=== PATIENT | female | born 1985 | race African-American/Black ===

== ENCOUNTER 2016-09-19 09:03 | Emergency (ER) | payer OTHER ==
[~2016-09-19 09:03] MED LIST: AZIT250T PO; BENZ200C39 PO; CIPR500T PO; HYDR115S2 PO; KETO10TA PO; PAIN; PHEN-318 PO; PRED20TA PO; PROAIR HFA8.5 GM INH
[2016-09-19 10:02] VITALS: BP 118/82
--- NOTE | 2016-09-19 10:24 | PHYS DOC ---
Past Medical History Past Medical History: Other Additional Past Medical Histor: Ovarian CA, Scoliosis Past Surgical History: , Oophorectomy, Other Additional Past Surgical Histo: Hernia repair Alcohol Use: None Drug Use: None Adult General Chief Complaint Chief Complaint: FOREIGN BODY VAGINA HPI HPI Patient is a 30 year old female presents to the emergency department with a history of placed a cervical cap for her menstrual cycle. Patient states she has not been able to get the cap removed. She states she placed the yesterday. C /o right lower abdominal pain. Denies vaginal discharge. Review of Systems Review of Systems Constitutional: Denies fever or chills [] Eyes: Denies change in visual acuity, redness, or eye pain [] HENT: Denies nasal congestion or sore throat [] Respiratory: Denies cough or shortness of breath [] Cardiovascular: No additional information not addressed in HPI [] GI: Denies abdominal pain, nausea, vomiting, bloody stools or diarrhea [] : Denies dysuria or hematuria. Patient c/o unable to remove cervical cap [] Musculoskeletal: Denies back pain or joint pain [] Integument: Denies rash or skin lesions [] Neurologic: Denies headache, focal weakness or sensory changes [] Allergies Allergies Allergies Coded Allergies Type Severity Reaction Last Updated Verified No Known Drug Allergies 10/24/13 No Physical Exam Physical Exam Constitutional: Well developed, well nourished, no acute distress, non-toxic appearance. [] HENT: Normocephalic, atraumatic, bilateral external ears normal, oropharynx moist, no oral exudates, nose normal. [] Eyes: PERRLA, EOMI, conjunctiva normal, no discharge. [] Neck: Normal range of motion, no tenderness, supple, no stridor. [] Cardiovascular:Heart rate regular rhythm, no murmur [] Lungs & Thorax: Bilateral breath sounds clear to auscultation [] Abdomen: Bowel sounds hypoactive, soft, no tenderness, no masses, no pulsatile masses. [] Skin: Warm, dry, no erythema, no rash. [] Back: No tenderness, Extremities: No tenderness, no cyanosis, no clubbing, ROM intact, no edema. [] Neurologic: Alert and oriented X 3, normal motor function, normal sensory function, no focal deficits noted. [] Psychologic: Affect normal, judgement normal, mood normal. [] Pelvic exam completed with cervical Noted. Cervical cap Was removed with slight difficulty. Cervical cap was completely intact. Foul odor was noted. Manaul exam with tenderness noted right adnexal and CMT no left adnexal tenderness noted. Current Patient Data Vital Signs Vital Signs Date Time Temp Pulse Resp B/P Pulse Ox O2 Delivery O2 Flow Rate FiO2 09/19/16 10:02 98.5 106 16 118/82 100 Room Air 98.5 Lab Values Microbiology 09/19/16 Wet Prep - Final, Complete EKG EKG [] Radiology/Procedures Radiology/Procedures [] Course & Med Decision Making Course & Med Decision Making Pertinent Labs and Imaging studies reviewed. (See chart for details) Wet prep was negative. Patient will be placed on doxycycline 1 tablet twice a day for the next 7 days. Recommended following up with [facility]. Patient was provided with signs and symptoms to return back to emergency department. Recommended patient to avoid sexual intercourse until she is off the doxycycline for at least a week. A shunt agrees with discharge instructions treatment regimens and follow-up recommendations. [] Dragon Disclaimer Dragon Disclaimer This electronic medical record was generated, in whole or in part, using a voice recognition dictation system. Departure Departure Impression: Primary Impression: Vaginal foreign body Disposition: HOME, SELF-CARE Condition: STABLE Referrals: YARIEL CLIFFORD MD (PCP) RORY CARLSON MD Patient Instructions: Vaginal Foreign Body, [id number] Additional Instructions: Activity as tolerated. Medications as prescribed. Tylenol or ibuprofen for pain and discomfort. Avoid sexual intercourse for 2 weeks. Follow-up with [facility] within the next week. Return back to emergency percent symptoms of become worse. Scripts Doxycycline Hyclate 100 Mg Capsule1 Cap PO BID #14 CAP Prov:LUCY HOWELL NP 09/19/16 LUCY HOWELL NP Sep 19, 2016 10:24
[2016-09-19] MEDS ORDERED: DOXY100C2 PO (11:25)
== END 2016-09-19 11:40 | disposition home or self-care (01) ==
LOC: ER 09:03
DX: T19.2XXA Foreign body in vulva and vagina, initial encounter (principal); Z98.890 Other specified postprocedural states; Z90.721 Acquired absence of ovaries, unilateral; X58.XXXA Exposure to other specified factors, initial encounter; Y93.89 Activity, other specified; Y92.89 Other specified places as the place of occurrence of the external cause; Y99.8 Other external cause status
CPT/HCPCS: 87491; 87591; 99284; Q0111

== ENCOUNTER → 2016-10-23 | Outpatient (CLI) | payer OTHER ==
[~2016-10-23] MED LIST changes: +DOXY100C2 PO
--- NOTE | 2016-10-23 15:37 | RAD ---
Examination: Transabdominal Ultrasound pelvis History: History of abnormal menses Comparison: None available Findings: The uterus measures 8.8 x 4.7 x 2.6 cm. The endometrium measures 1 cm in thickness. There is some echogenicity identified within the endometrium with fluid within probably blood however in the lower portion of the endometrium , there is a 4 mm echogenicity, nonspecific could be of blood or blood products or a small polyp. The right ovary measures 2.7 x 1.8 x 2.0 cm. The left ovary measures 2.2 x 1.6 x 1.4 cm. Blood flow identified in the right and left ovaries. There is a small cystic structure measuring 1 cm identified in the right ovary probably a follicle. Impression: 1. Fluid identified within the endometrium with some echogenicity within probably blood within the endometrium. There is a 4 mm echogenicity identified in the lower portion of the endometrium could be a blood or blood product or a tiny polyp. Differentiation is difficult. Transvaginal ultrasound examination can be useful better evaluation. 2. 1 cm cystic structure identified in the right ovary likely a follicle.
== END | disposition home or self-care (01) ==
LOC: US 14:44
PROVIDERS: ATTEND Nurse Practitioner Family
DX: N83.201 Unspecified ovarian cyst, right side (principal)
CPT/HCPCS: 76856

== ENCOUNTER 2016-11-26 17:29 | Emergency (ER) | payer OTHER ==
[2016-11-26 17:32] VITALS: BP 110/78
[2016-11-26] MEDS ORDERED: DIPHENHYDRAMINE HCL 25 MG CAPSULE PO ONE (17:45)
[2016-11-26] MEDS ORDERED: KETOROLAC TROMETHAMINE 60 MG/2 ML INJ. IM ONE (17:45)
[2016-11-26] MEDS ORDERED: PREDNISONE 20 MG TABLET PO ONE (17:45)
[2016-11-26] MEDS ORDERED: PROCHLORPERAZINE 10 MG/2 ML VIAL. IM ONE (17:45)
--- NOTE | 2016-11-26 17:47 | PHYS DOC ---
Past Medical History Past Medical History: Other Additional Past Medical Histor: Ovarian CA, Scoliosis Past Surgical History: , Oophorectomy, Other Additional Past Surgical Histo: Hernia repair Alcohol Use: None Drug Use: None Adult General Chief Complaint Chief Complaint: Congestion HPI HPI Patient is a 31 year old female with history of migraine headaches who presents today with 8 out of 10 frontal headache, nasal congestion, and coughing that began yesterday. Patient denies any fever. Patient states her headache is consistent with her normal migraines. She states she has tried Imitrex and promethazine with no relief. Denies this being the worst headache in her life. Denies any fever. Denies any nausea vomiting and right now. She is complaining of photophobia as well. Review of Systems Review of Systems Constitutional: Denies fever or chills [] Eyes: Denies change in visual acuity, redness, or eye pain [] HENT: nasal congestion Respiratory: Denies cough or shortness of breath [] Cardiovascular: No additional information not addressed in HPI [] GI: See history of present illness : Denies dysuria or hematuria [] Musculoskeletal: Denies back pain or joint pain [] Integument: Denies rash or skin lesions [] Neurologic: headache Endocrine: Denies polyuria or polydipsia [] Current Medications Current Medications Current Medications Medications (Trade) Dose Ordered Sig/Duy Start Time Stop Time Status Last Admin Dose Admin Diphenhydramine HCl (Benadryl) 25 mg 1X ONCE 11/26/16 17:45 11/26/16 17:46 DC Ketorolac Tromethamine (Toradol Im) 60 mg 1X ONCE 11/26/16 17:45 11/26/16 17:46 DC Prednisone (Prednisone) 60 mg 1X ONCE 11/26/16 17:45 11/26/16 17:46 DC Prochlorperazine Edisylate (Compazine) 10 mg 1X ONCE 11/26/16 17:45 11/26/16 17:46 DC Allergies Allergies Allergies Coded Allergies Type Severity Reaction Last Updated Verified No Known Drug Allergies 10/24/13 No Physical Exam Physical Exam Constitutional: Well developed, well nourished, no acute distress, non-toxic appearance. [] HENT: Normocephalic, atraumatic, bilateral external ears normal, oropharynx moist, no oral exudates, nose normal. [] Eyes: PERRLA, EOMI, conjunctiva normal, no discharge. [] Neck: Normal range of motion, no tenderness, supple, no stridor. [] Cardiovascular:Heart rate regular rhythm, no murmur [] Lungs & Thorax: Bilateral breath sounds clear to auscultation [] Abdomen: Bowel sounds normal, soft, no tenderness, no masses, no pulsatile masses. [] Skin: Warm, dry, no erythema, no rash. [] Back: No tenderness, no CVA tenderness. [] Extremities: No tenderness, no cyanosis, no clubbing, ROM intact, no edema. [] Neurologic: Alert and oriented X 3, normal motor function, normal sensory function, no focal deficits noted. Cranial nerves II through XII intact Psychologic: Affect normal, judgement normal, mood normal. [] Current Patient Data Vital Signs Vital Signs Date Time Temp Pulse Resp B/P Pulse Ox O2 Delivery O2 Flow Rate FiO2 11/26/16 17:32 98.1 98 20 98 Room Air 98.1 EKG EKG [] Radiology/Procedures Radiology/Procedures [] Course & Med Decision Making Course & Med Decision Making Pertinent Labs and Imaging studies reviewed. (See chart for details) Patient is in the ED with symptoms of an upper respiratory infection as well as a migraine headache. She has history of migraine headaches. She was discharged with Flonase, Tessalon Perles, and Claritin-D. Follow-up with her PCP in 1-2 weeks. Dragon Disclaimer Dragon Disclaimer This electronic medical record was generated, in whole or in part, using a voice recognition dictation system. Departure Departure Impression: Primary Impression: Upper respiratory infection Additional Impressions: Migraine headache Cough Disposition: 01 HOME, SELF-CARE Condition: STABLE Referrals: YARIEL CLIFFORD MD (PCP) Follow-up with your doctor in 1-2 weeks Patient Instructions: Cough, Adult, [id number], Migraine Headache, Upper Respiratory Infection, Adult Additional Instructions: You were seen with symptoms consistent of an upper respiratory infection as well as a migraine headache. Take the prescribed medicines as ordered. Follow- up with your doctor in the next 7 days, come back to the ED symptoms worsen. Scripts Cetirizine Hcl/Pseudoephedrine (Zyrtec-D Tablet)1 Each Tab.er.12h1 Tab PO BID # 30 TAB Prov:MUTUNGA,VIOLETTA LUCIA 11/26/16 Cyclobenzaprine Hcl 10 Mg Tablet1 Tab PO TID #30 TAB Prov:JINVIOLETTA LUCIA 11/26/16 Fluticasone Propionate (Flonase Allergy Relief)9.9 Ml [place].susp2 Sprays NS DAILY #1 BOTTLE Prov:VIOLETTA ABDI APRN 11/26/16 Benzonatate (Tessalon Perle)100 Mg Capsule1 Cap PO TID #30 CAP Prov:VIOLETTA ABDI APRN 11/26/16 Prednisone 50 Mg Tablet1 Tab PO DAILY #4 TAB Prov:IJNVIOLETTA LUCIA 11/26/16 Problem Qualifiers Primary Impression: Upper respiratory infection URI type: unspecified URI Qualified Code: J06.9 - Acute upper respiratory infection, unspecified Additional Impressions: Migraine headache Migraine type: unspecified Status migrainosus presence: without status migrainosus Intractability: not intractable Qualified Code: G43.909 - Migraine, unspecified, not intractable, without status migrainosus VIOLETTA ABDI APRN Nov 26, 2016 17:47
[2016-11-26] MEDS ORDERED: PROCHLORPERAZINE 5 MG TABLET. PO STA (17:50)
[2016-11-26] MEDS ORDERED: CETI1TAB7 PO (17:54)
[2016-11-26] MEDS ORDERED: CYCL10TA2 PO (17:54)
[2016-11-26] MEDS ORDERED: FLUT9.9S NS (17:54)
[2016-11-26] MEDS ORDERED: BENZ100C PO (17:54)
[2016-11-26] MEDS ORDERED: PRED50TA PO (17:54)
[2016-11-26] MEDS ORDERED: PROMETHAZINE 12.5 MG TABLET. PO ONE (18:15)
== END 2016-11-26 18:29 | disposition home or self-care (01) ==
LOC: ER 17:29
DX: J06.9 Acute upper respiratory infection, unspecified (principal); G43.909 Migraine, unspecified, not intractable, without status migrainosus
CPT/HCPCS: 96372; 99284; J1885; J7512; Q0163; Q0169

== ENCOUNTER → 2017-02-03 | Outpatient (CLI) | payer OTHER ==
[~2017-02-03] MED LIST changes: +BENZ100C PO; -BENZ200C39 PO; +BENZ200C47 PO; +CETI1TAB7 PO; +CYCL10TA2 PO; +FLUT9.9S NS; +PRED50TA PO
--- NOTE | 2017-02-03 13:01 | RAD ---
Indication: Asthma attack. Time of exam 12:35 PM Correlation is made with prior study from 09/01/2016. Right convexity thoracic scoliotic curvature is noted. The heart size is stable. The lungs are clear. No infiltrate is detected. No effusion or pneumothorax is identified. Impression: No acute cardiopulmonary process is detected.
== END | disposition home or self-care (01) ==
LOC: RAD 12:04
PROVIDERS: ATTEND Family Medicine
DX: J45.901 Unspecified asthma with (acute) exacerbation (principal); M41.84 Other forms of scoliosis, thoracic region
CPT/HCPCS: 71020

== ENCOUNTER 2017-06-03 11:56 | Emergency (ER) | payer OTHER ==
[~2017-06-03] VITALS: Ht 152.4 cm; Wt 45.8 kg
[2017-06-03 12:02] VITALS: BP 97/56
[2017-06-03] MEDS ORDERED: CYCLOBENZAPRINE 10 MG TABLET. PO ONE (12:30)
[2017-06-03] MEDS ORDERED: SUMAtriptan SUCCINATE 25 MG TABLET PO ONE (12:30)
[2017-06-03] MEDS ORDERED: ONDANSETRON ODT 4 MG TAB.RAPDIS. PO ONE (12:30)
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
--- NOTE | 2017-06-03 13:14 | RAD ---
Examination: CT head and cervical spine without contrast History: History of neck pain, injury, dizziness. Comparison: CT head from 09/14/2014 Technique: Axial CT images of the head and cervical spine was performed with the contrast. Coronal and sagittal reformats of the cervical spine were performed RS Compliance Statement: One or more of the following individualized dose reduction techniques were utilized for this examination: 1. Automated exposure control 2. Adjustment of the mA and/or kV according to patient size 3. Use of iterative reconstruction technique . Findings There is no evidence of midline shift. There is no acute intracranial bleed or extra axial fluid collection identified. The amezquita-white matter different sensation is maintained. Cavum septum pellucidum identified. The visualized lateral ventricles, third ventricle, fourth ventricle are proper for age. The basal cisterns are uneffaced. Probable Chiari1 formation similar to prior exam. The vertebral body heights are maintained. There is no obvious acute fracture identified. The lateral masses of C1 are aligned with C2 vertebra. The C2 dens appears intact. No evidence of prevertebral soft tissue swelling identified. No evidence of listhesis. The apical lungs are clear. No evidence of prevertebral soft tissue swelling. Examination cervical spine somewhat limited due to positioning within the CT gantry. Impression: 1. No evidence of intracranial findings. 2. 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 2. No acute fracture of the cervical spine. Correlate clinically.
[2017-06-03] MEDS ORDERED: TRAM-48 PO (13:57)
== END 2017-06-03 13:58 | disposition home or self-care (01) ==
LOC: ER 11:56
DX: S16.1XXA Strain of muscle, fascia and tendon at neck level, initial encounter (principal); R51 Headache; W08.XXXA Fall from other furniture, initial encounter; Y93.84 Activity, sleeping; Y99.8 Other external cause status; Y92.009 Unspecified place in unspecified non-institutional (private) residence as the place of occurrence of the external cause
CPT/HCPCS: 70450; 72125; 99284-25

== ENCOUNTER 2017-11-13 18:15 | Emergency (ER) | payer OTHER ==
[2017-11-13 18:50] LABS: INFLUENZA A PATIENT NEGATIVE (NEGATIVE); INFLUENZA B PATIENT NEGATIVE (NEGATIVE); OBC FLU VALID
[2017-11-13] MEDS: DEXAMETHASONE SOD PHOS 20 MG/5 ML VIAL. IM (19:10)
[2017-11-13] MEDS: KETOROLAC 60 MG/2 ML INJ. IM (19:10)
[2017-11-14 10:25] LABS: NEGATIVE OBC STREP NEG; POSITIVE OBC STREP POS
== END 2017-11-13 19:58 | disposition home or self-care (01) ==
LOC: ER 19:58
DX: G43.909 Migraine, unspecified, not intractable, without status migrainosus (principal); J06.9 Acute upper respiratory infection, unspecified
CPT/HCPCS: 71046; 87070; 87804; 87804-59; 87880; 96372; 99285-25; J1100; J1885

== ENCOUNTER → 2018-02-25 | Outpatient (CLI) | payer OTHER | END | disposition home or self-care (01) | LOC: RAD 12:33 | DX: R06.02 Shortness of breath (principal); J32.9 Chronic sinusitis, unspecified; G43.909 Migraine, unspecified, not intractable, without status migrainosus | CPT/HCPCS: 71046 ==

== ENCOUNTER 2018-05-09 11:45 | Emergency (ER) | payer OTHER ==
[~2018-05-09] VITALS: Ht 152.4 cm; Wt 37.6 kg
[~2018-05-09 11:45] MED LIST changes: +TRAM-48 PO; +TRAM50TA PO; +VENTOLIN HFA18 GM INH
--- NOTE | 2018-05-09 12:24 | PHYS DOC ---
Past Medical History Past Medical History: Cancer, Other Additional Past Medical Histor: Ovarian CA, Scoliosis Past Surgical History: , Oophorectomy, Other Additional Past Surgical Histo: Hernia repair,R OVARY Alcohol Use: None Drug Use: None Adult General Chief Complaint Chief Complaint: HEADACHE HPI HPI Patient is a 32 year old female who presents with 8/10 throbbing frontal headache that began on Thursday which is 3 days ago. Patient states the headache began gradually. Patient states she's also had nausea and vomiting since the headache began. Patient denies any fever. She states she has history of migraine headaches and this is similar to her previous migraines. Review of Systems Review of Systems Constitutional: Denies fever or chills [] Eyes: Denies change in visual acuity, redness, or eye pain [] HENT: Denies nasal congestion or sore throat [] Respiratory: Denies cough or shortness of breath [] Cardiovascular: No additional information not addressed in HPI [] GI: Reports nausea and vomiting. Denies abdominal pain, bloody stools or diarrhea [] : Denies dysuria or hematuria [] Musculoskeletal: Denies back pain or joint pain [] Integument: Denies rash or skin lesions [] Neurologic: Reports migraine headache, denies focal weakness or sensory changes [] All other systems were reviewed and found to be within normal limits, except as documented in this note. Current Medications Current Medications Current Medications Medications (Trade) Dose Ordered Sig/Duy Start Time Stop Time Status Last Admin Dose Admin Dexamethasone Sodium Phosphate (Decadron) 10 mg 1X ONCE 05/09/18 12:30 05/09/18 12:31 DC 05/09/18 12:49 10 MG Diphenhydramine HCl (Benadryl) 25 mg 1X ONCE 05/09/18 12:30 05/09/18 12:31 DC 05/09/18 12:48 25 MG Ketorolac Tromethamine (Toradol 30mg Vial) 30 mg 1X ONCE 05/09/18 12:30 05/09/18 12:31 DC 05/09/18 12:49 30 MG Prochlorperazine Edisylate (Compazine) 10 mg 1X ONCE 05/09/18 12:30 05/09/18 12:31 DC 05/09/18 12:49 10 MG Sodium Chloride 1,000 ml @ 1,000 mls/hr 1X ONCE 05/09/18 12:30 05/09/18 13:29 DC 05/09/18 12:47 1,000 MLS/HR Allergies Allergies Allergies Coded Allergies Type Severity Reaction Last Updated Verified No Known Drug Allergies 10/24/13 No Physical Exam Physical Exam Constitutional: Well developed, well nourished, no acute distress, non-toxic appearance. [] HENT: Normocephalic, atraumatic, bilateral external ears normal, oropharynx moist, no oral exudates, nose normal. [] Eyes: PERRLA, EOMI, conjunctiva normal, no discharge. [] Neck: Normal range of motion, no tenderness, supple, no stridor. [] Cardiovascular:Heart rate regular rhythm, no murmur [] Lungs & Thorax: Bilateral breath sounds clear to auscultation [] Abdomen: Bowel sounds normal, soft, no tenderness, no masses, no pulsatile masses. [] Skin: Warm, dry, no erythema, no rash. [] Back: No tenderness, no CVA tenderness. [] Extremities: No tenderness, no cyanosis, no clubbing, ROM intact, no edema. [] Neurologic: Alert and oriented X 3, normal motor function, normal sensory function, no focal deficits noted. Cranial nerves II through XII intact Psychologic: Affect normal, judgement normal, mood normal. [] Current Patient Data Vital Signs Vital Signs Date Time Temp Pulse Resp B/P (MAP) Pulse Ox O2 Delivery O2 Flow Rate FiO2 05/09/18 12:04 98.2 123 16 113/78 (90) 98 Room Air 98.2 Lab Values Laboratory Tests Test 05/09/18 12:13 05/09/18 12:20 POC Urine HCG, Qualitative Hcg negative (Negative) White Blood Count 6.2 x10^3/uL (4.0-11.0) Red Blood Count 3.94 x10^6/uL (3.50-5.40) Hemoglobin 11.9 g/dL (12.0-15.5) L Hematocrit 35.3 % (36.0-47.0) L Mean Corpuscular Volume 90 fL (79-100) Mean Corpuscular Hemoglobin 30 pg (25-35) Mean Corpuscular Hemoglobin Concent 34 g/dL (31-37) Red Cell Distribution Width 13.1 % (11.5-14.5) Platelet Count 347 x10^3/uL (140-400) Neutrophils (%) (Auto) 48 % (31-73) Lymphocytes (%) (Auto) 43 % (24-48) Monocytes (%) (Auto) 6 % (0-9) Eosinophils (%) (Auto) 1 % (0-3) Basophils (%) (Auto) 1 % (0-3) Neutrophils # (Auto) 3.0 x10^3uL (1.8-7.7) Lymphocytes # (Auto) 2.7 x10^3/uL (1.0-4.8) Monocytes # (Auto) 0.4 x10^3/uL (0.0-1.1) Eosinophils # (Auto) 0.1 x10^3/uL (0.0-0.7) Basophils # (Auto) 0.1 x10^3/uL (0.0-0.2) Sodium Level 139 mmol/L (136-145) Potassium Level 3.8 mmol/L (3.5-5.1) Chloride Level 104 mmol/L (98-107) Carbon Dioxide Level 24 mmol/L (21-32) Anion Gap 11 (6-14) Blood Urea Nitrogen 19 mg/dL (7-20) Creatinine 0.8 mg/dL (0.6-1.0) Estimated GFR (Cockcroft-Gault) 100.0 Glucose Level 91 mg/dL (70-99) Calcium Level 9.3 mg/dL (8.5-10.1) Laboratory Tests 05/09/18 12:20 Laboratory Tests 05/09/18 12:20 EKG EKG [] Radiology/Procedures Radiology/Procedures [] Course & Med Decision Making Course & Med Decision Making Pertinent Labs and Imaging studies reviewed. (See chart for details) This is a 32-year-old female patient presented to the ED today with exacerbation of chronic migraine headache, hx of similar migraine headaches. She does not have neurological deficits. She was given Toradol, IV fluids, Decadron, Compazine, Benadryl, without relief. She has been tachycardic since arrival to the ED. Patient tends to be tachycardic whenever he comes to the ED. There is nothing unusual about her headache today. She was discharged with Imitrex and promethazine and instructed to follow-up with her on PCP in 1-2 weeks. Also provided neurologist for frequent migraines. Dragon Disclaimer Dragon Disclaimer This electronic medical record was generated, in whole or in part, using a voice recognition dictation system. Departure Departure Impression: Primary Impression: Migraine headache Disposition: HOME, SELF-CARE Condition: STABLE (alcohol) Referrals: YARIEL CLIFFORD MD (PCP) follow up in 2 weeks WILIAN JEFF MD Patient Instructions: Migraine Headache Additional Instructions: You have a migraine headache. Complete your medications, take them as prescribed. Follow-up with your own doctor as well as the neurologist as soon as possible. Scripts Promethazine Hcl (PROMETHAZINE HCL) 25 Mg Tablet 1 TAB PO PRN Q6HRS, #30 TAB Prov: VIOLETTA ABDI APRN 05/09/18 Sumatriptan Succinate (IMITREX) 50 Mg Tablet 1 TAB PO UD, #9 TAB 1 Refill Prov: VIOLETTA ABDI APRN 05/09/18 Problem Qualifiers Primary Impression: Migraine headache Migraine type: without aura Status migrainosus presence: without status migrainosus Intractability: not intractable Qualified Codes: G43.009 - Migraine without aura, not intractable, without status migrainosus VIOLETTA ABDI APRN May 09, 2018 12:24
[2018-05-09] MEDS ORDERED: diphenhydrAMINE HCL 25 MG CAPSULE PO ONE (12:30)
[2018-05-09] MEDS ORDERED: KETOROLAC 30 MG/ML VIAL. IV ONE (12:30)
[2018-05-09] MEDS ORDERED: IV NORMAL SALINE 1000ML BAG 1,000 ML IV ONE (12:30)
[2018-05-09] MEDS ORDERED: DEXAMETHASONE SOD PHOS 20 MG/5 ML VIAL. IV ONE (12:30)
[2018-05-09] MEDS ORDERED: PROCHLORPERAZINE 10 MG/2 ML VIAL. IV ONE (12:30)
[2018-05-09 12:32] LABS: BASO # 0.1 x10^3/uL (0.0-0.2); BASO % 1 % (0-3); EOS # 0.1 x10^3/uL (0.0-0.7); EOS % 1 % (0-3); HEMATOCRIT 35.3 % (36.0-47.0); HEMOGLOBIN 11.9 g/dL (12.0-15.5); LYMPH # 2.7 x10^3/uL (1.0-4.8); LYMPH % 43 % (24-48); MEAN CORPUSCULAR HEMOGLOBIN 30 pg (25-35); MEAN CORPUSCULAR HGB CONC 34 g/dL (31-37); MEAN CORPUSCULAR VOLUME 90 fL (79-100); MONO # 0.4 x10^3/uL (0.0-1.1); MONO % 6 % (0-9); NEUT % 48 % (31-73); PLATELET COUNT 347 x10^3/uL (140-400); RED BLOOD COUNT 3.94 x10^6/uL (3.50-5.40); RED CELL DISTRIBUTION WIDTH 13.1 % (11.5-14.5); WHITE BLOOD COUNT 6.2 x10^3/uL (4.0-11.0)
[2018-05-09 12:38] LABS: CALCIUM 9.3 mg/dL (8.5-10.1); CREATININE 0.8 mg/dL (0.6-1.0); POTASSIUM 3.8 mmol/L (3.5-5.1)
[2018-05-09] MEDS ORDERED: PROM25TA10 PO (13:48)
[2018-05-09] MEDS ORDERED: SUMA50TA3 PO (13:48)
[2018-05-09 14:06] VITALS: BP 110/73
== END 2018-05-09 14:08 | disposition home or self-care (01) ==
LOC: ER 11:45
DX: G43.009 Migraine without aura, not intractable, without status migrainosus (principal); R11.2 Nausea with vomiting, unspecified; Z98.890 Other specified postprocedural states
CPT/HCPCS: 36415; 80048; 81025; 85025; 96361; 96374; 96375; 99284; J0780; J1100; J1885; J7030; Q0163

== ENCOUNTER 2018-05-13 18:13 | Emergency (ER) | payer OTHER ==
[~2018-05-13] VITALS: Ht 157.5 cm; Wt 37.6 kg
[~2018-05-13 18:13] MED LIST changes: +PROM25TA10 PO; +SUMA50TA3 PO
[2018-05-13 18:35] VITALS: BP 115/82
[2018-05-13] MEDS ORDERED: LIDO30CR TP (18:54)
[2018-05-13] MEDS ORDERED: HYDR25SU18 RC (18:54)
[2018-05-13] MEDS ORDERED: POLY17PO29 PO (18:55)
--- NOTE | 2018-05-13 18:55 | PHYS DOC ---
Past Medical History Past Medical History: Cancer, Other Additional Past Medical Histor: Ovarian CA, Scoliosis Past Surgical History: , Oophorectomy, Other Additional Past Surgical Histo: Hernia repair,R OVARY Alcohol Use: None Drug Use: None Adult General Chief Complaint Chief Complaint: OTHER COMPLAINTS [facility] Patient is a 32 year old female who presents complaining of hemorrhoid to her rectum that she noted this morning. Patient denies any abdominal pain nausea vomiting. Review of Systems Review of Systems Constitutional: Denies fever or chills [] Eyes: Denies change in visual acuity, redness, or eye pain [] HENT: Denies nasal congestion or sore throat [] Respiratory: Denies cough or shortness of breath [] Cardiovascular: No additional information not addressed in HPI [] GI: Reports hemorrhoid. Denies abdominal pain, nausea, vomiting, bloody stools or diarrhea [] : Denies dysuria or hematuria [] Musculoskeletal: Denies back pain or joint pain [] Integument: Denies rash or skin lesions [] Neurologic: Denies headache, focal weakness or sensory changes [] All other systems were reviewed and found to be within normal limits, except as documented in this note. Allergies Allergies Allergies Coded Allergies Type Severity Reaction Last Updated Verified No Known Drug Allergies 10/24/13 No Physical Exam Physical Exam Constitutional: Well developed, well nourished, no acute distress, non-toxic appearance. [] HENT: Normocephalic, atraumatic, bilateral external ears normal, oropharynx moist, no oral exudates, nose normal. [] Eyes: PERRLA, EOMI, conjunctiva normal, no discharge. [] Neck: Normal range of motion, no tenderness, supple, no stridor. [] Cardiovascular:Heart rate regular rhythm, no murmur [] Lungs & Thorax: Bilateral breath sounds clear to auscultation [] Abdomen: Bowel sounds normal, soft, no tenderness, no masses, no pulsatile masses. [] Rectal exam Patient declined, she showed me a picture of her rectum that looks like she has 2 peanut size hemorrhoids. Skin: Warm, dry, no erythema, no rash. [] Back: No tenderness, no CVA tenderness. [] Extremities: No tenderness, no cyanosis, no clubbing, ROM intact, no edema. [] Neurologic: Alert and oriented X 3, normal motor function, normal sensory function, no focal deficits noted. [] Psychologic: Affect normal, judgement normal, mood normal. [] Current Patient Data Vital Signs Vital Signs Date Time Temp Pulse Resp B/P (MAP) Pulse Ox O2 Delivery O2 Flow Rate FiO2 05/13/18 18:35 98.2 110 16 115/82 (93) 100 Room Air 98.2 EKG EKG [] Radiology/Procedures Radiology/Procedures [] Course & Med Decision Making Course & Med Decision Making Pertinent Labs and Imaging studies reviewed. (See chart for details) This is a 32-year-old female patient presented to the ED today complaining of rectal pain due to hemorrhoids. Patient will not let me do a physical exam to evaluate the hemorrhoids. She only showed to me the picture on her cell phone that she took early this morning. Patient denies constipation. She was discharged with Anusol cream, lidocaine cream, MiraLAX, and encouraged to increase her dietary fiber intake. Encouraged her to avoid any narcotics pain medicines. She is well known to this ED for Migraine headaches. F/u with general surgery. Dragon Disclaimer Dragon Disclaimer This electronic medical record was generated, in whole or in part, using a voice recognition dictation system. Departure Departure Impression: Primary Impression: Hemorrhoids Disposition: 01 HOME, SELF-CARE Condition: STABLE Referrals: YARIEL CLIFFORD MD (PCP) TURNER LYNN MD Follow-up in one week Patient Instructions: Hemorrhoids, [id number] Additional Instructions: You were evaluated in the emergency room, from the pictures you showed us it look like you have hemorrhoids. Try and use MiraLAX every day, increase your dietary fiber intake as well as water intake, avoid any narcotic pain medicines including tramadol. Use the rest of the prescribed medications as ordered. Follow-up with the primary care doctor as well as general surgeon provided in one week. Scripts Polyethylene Glycol 3350 (MIRALAX) 17 Gm Powd.pack 1 PACKET PO DAILY, #30 PACKET 3 Refills Prov: MUTUNGA,VIOLETTA HELP DESK SUPERVISOR 05/13/18 Hydrocortisone Acetate (ANUSOL-HC) 25 Mg Supp.rect 1 SUPP RC BID, #14 SUPP Prov: MUTUNGA,VIOLETTA HELP DESK SUPERVISOR 05/13/18 Lidocaine/Prilocaine (LIDOCAINE-PRILOCAINE CREAM) 30 Gm Cream..g. 1 ADILSON TP Q4-6HRS PRN for PAIN, #30 GM 1 Refill Apply to exterior rectal area Prov: VIOLETTA ABDI APRN 05/13/18 Problem Qualifiers Primary Impression: Hemorrhoids Hemorrhoid type: unspecified Qualified Codes: K64.9 - Unspecified hemorrhoids VIOLETTA ABDI APRN May 13, 2018 18:55
== END 2018-05-13 19:00 | disposition home or self-care (01) ==
LOC: ER 18:13
DX: K64.9 Unspecified hemorrhoids (principal); Z98.890 Other specified postprocedural states; Z85.43 Personal history of malignant neoplasm of ovary; Z90.722 Acquired absence of ovaries, bilateral
CPT/HCPCS: 99283

== ENCOUNTER 2018-09-04 11:28 | Emergency (ER) | payer OTHER ==
[~2018-09-04] VITALS: Ht 152.4 cm; Wt 36.7 kg
[~2018-09-04 11:28] MED LIST changes: +ALBU2.5V8 INH; +HYDR25SU18 RC; +LIDO30CR TP; +POLY17PO29 PO; -PROAIR HFA8.5 GM INH
[2018-09-04 12:04] VITALS: BP 121/82
[2018-09-04] MEDS ORDERED: GUAI118L20 PO (13:20)
[2018-09-04] MEDS ORDERED: METH4TAB2 PO (13:20)
[2018-09-04] MEDS ORDERED: AZIT250T6 PO (13:20)
--- NOTE | 2018-09-04 13:20 | PHYS DOC ---
Past Medical History Past Medical History: Cancer, Other Additional Past Medical Histor: Ovarian CA, Scoliosis Past Surgical History: , Oophorectomy, Other Additional Past Surgical Histo: Hernia repair,R OVARY Alcohol Use: None Drug Use: None Adult General Chief Complaint Chief Complaint: FLU SYMPTOM HPI HPI Patient is a 32 year old female who presents with throat, cough and body aches since . Patient states last night was last fever she had. Afebrile in the ED. Patient states she's been taking Benadryl and Tessalon Perles but is not working. Review of Systems Review of Systems Constitutional: Denies fever or chills [] Eyes: Denies change in visual acuity, redness, or eye pain [] HEN nasal congestion or sore throat [] Respiratory cough or denies shortness of breath [] Cardiovascular: No additional information not addressed in HPI [] GI: Denies abdominal pain, nausea, vomiting, bloody stools or diarrhea [] : Denies dysuria or hematuria [] Musculoskeletal: Body aches Denies back pain or joint pain [] Integument: Denies rash or skin lesions [] Neurologic: Denies headache, focal weakness or sensory changes [] [] All other systems were reviewed and found to be within normal limits, except as documented in this note. Allergies Allergies Allergies Coded Allergies Type Severity Reaction Last Updated Verified No Known Drug Allergies 10/24/13 No Physical Exam Physical Exam Constitutional: Well developed, well nourished, no acute distress, non-toxic appearance. [] HENT: Normocephalic, atraumatic, bilateral external ears normal, oropharynx moist, no oral exudates, nose normal. Throat reddened[] Eyes: PERRLA, EOMI, conjunctiva normal, no discharge. [] Neck: Normal range of motion, no tenderness, supple, no stridor. [] Cardiovascular:Heart rate regular rhythm, no murmur [] Lungs & Thorax: Bilateral breath sounds clear to auscultation [] Abdomen: Bowel sounds normal, soft, no tenderness, no masses, no pulsatile masses. [] Skin: Warm, dry, no erythema, no rash. [] Back: No tenderness, no CVA tenderness. [] Extremities: No tenderness, no cyanosis, no clubbing, ROM intact, no edema. [] Neurologic: Alert and oriented X 3, normal motor function, normal sensory function, no focal deficits noted. [] Psychologic: Affect normal, judgement normal, mood normal. [] Current Patient Data Vital Signs Vital Signs Date Time Temp Pulse Resp B/P (MAP) Pulse Ox O2 Delivery O2 Flow Rate FiO2 09/04/18 12:04 98.8 124 18 121/82 (95) 99 Room Air 98.8 Lab Values Laboratory Tests Test 09/04/18 12:12 Influenza Type A Antigen Negative (NEGATIVE) Influenza Type B Antigen Negative (NEGATIVE) EKG EKG [] Radiology/Procedures Radiology/Procedures [] Course & Med Decision Making Course & Med Decision Making Patient is a 32 year old female who presents with throat, cough and body aches since . Patient states last night was last fever she had. Afebrile in the ED. Patient states she's been taking Benadryl and Tessalon Perles but is not working. Alert and oriented. Skin pink warm and dry. Mucus membranes are moist. Throat is red but there are no exudates or swelling. Bilateral ear tympanic are pearly white. Lungs are clear in all lobes. Ambulatory with a steady gait. Vital Signs within normal limits. Abdomen is soft and nontender. Patient denies nausea, vomiting, chest pain, headache. Rapid strep and rapid flu are negative. Patient is to follow-up with her primary care provider and take medications as prescribed. Patient is to drink plenty of fluids. Dragon Disclaimer Dragon Disclaimer This electronic medical record was generated, in whole or in part, using a voice recognition dictation system. Departure Departure Impression: Primary Impression: Cough Additional Impressions: Headache Fever Disposition: 01 HOME, SELF-CARE Condition: STABLE Referrals: YARIEL CLIFFORD MD (PCP) Patient Instructions: Upper Respiratory Infection, Adult Additional Instructions: Follow-up with primary care provider. Continue taking Mucinex. Take medications as prescribed. Use ibuprofen for pain. Drink plenty of fluids. Scripts Guaifenesin/Codeine Phosphate (CHERATUSSIN AC SYRUP) 118 Ml Liquid 5 ML PO PRN Q6HRS for 5 Days, #120 ML Prov: LUCY BULLOCK STOREROOM ATTENDANT 09/04/18 Methylprednisolone (MEDROL) 4 Mg Tab.ds.pk 1 PKG PO UD, #1 PKG Prov: LUCY BULLOCK STOREROOM ATTENDANT 09/04/18 Azithromycin (AZITHROMYCIN TABLET) 250 Mg Tablet 1 PKG PO UD, #6 TAB Prov: LUCY BULLOCK APRN 09/04/18 Problem Qualifiers Additional Impressions: Headache Headache type: unspecified Headache chronicity pattern: unspecified pattern Intractability: not intractable Qualified Codes: R51 - Headache Fever Fever type: unspecified Qualified Codes: R50.9 - Fever, unspecified LUCY BULLOCK APRN Sep 04, 2018 13:20
[2018-09-04 13:37] LABS: INFLUENZA A PATIENT NEGATIVE (NEGATIVE); INFLUENZA B PATIENT NEGATIVE (NEGATIVE)
== END 2018-09-04 13:46 | disposition home or self-care (01) ==
LOC: ER 11:28
DX: J02.9 Acute pharyngitis, unspecified (principal); R05 Cough; R50.9 Fever, unspecified; M79.18 Myalgia, other site; Z98.890 Other specified postprocedural states; Z90.721 Acquired absence of ovaries, unilateral
CPT/HCPCS: 87804; 87880; 99283

== ENCOUNTER 2019-09-26 17:34 | Emergency (ER) | payer SELFPAY ==
[~2019-09-26] VITALS: Ht 152.4 cm; Wt 39.5 kg
[~2019-09-26 17:34] MED LIST changes: +AZIT250T6 PO; +GUAI118L20 PO; +METH4TAB2 PO
--- NOTE | 2019-09-26 18:12 | PHYS DOC ---
Past Medical History Past Medical History: Cancer, Other Additional Past Medical Histor: Ovarian CA, Scoliosis, brain tumor Past Surgical History: , Oophorectomy, Other Additional Past Surgical Histo: Hernia repair, R OVARY Smoking Status: Never Smoker Alcohol Use: Occasionally Drug Use: None Adult General Chief Complaint Chief Complaint: HEADACHE HPI HPI Patient is a 33 year old female, brought to the emergency department by EMS, with complaints of right-sided chest pain that began today and body aches, fatigue, nausea, and a headache with blurry vision, photosensitivity, and lightheadedness for the last 3 days. Patient denies any vomiting, diarrhea, abdominal pain, shortness breath, wheezing, cough, or fever. She states that she has a history of headaches and that this is similar to her previous headaches. She denies any palpitations, numbness, tingling, or weakness. The patient states that the chest pain increases with a deep breath and is relieved by nothing. Patient currently rates her pain 9 out of 10 on pain scale she denies any alleviating factors. Review of Systems Review of Systems All other ROS is negative unless otherwise noted in HPI. Current Medications Current Medications Current Medications Medications (Trade) Dose Ordered Sig/Duy Start Time Stop Time Status Last Admin Dose Admin Dexamethasone Sodium Phosphate (Decadron) 10 mg 1X ONCE 09/26/19 18:15 09/26/19 18:16 DC 09/26/19 18:15 10 MG Diphenhydramine HCl (Benadryl) 25 mg 1X ONCE 09/26/19 18:15 09/26/19 18:16 DC 09/26/19 18:15 25 MG Info (CONTRAST GIVEN -- Rx MONITORING) 1 each PRN DAILY PRN 09/26/19 20:00 09/28/19 19:59 Iohexol (Omnipaque 350 Mg/ml) 5 ml 1X ONCE 09/26/19 19:45 09/26/19 19:48 DC 09/26/19 20:12 5 ML Ketorolac Tromethamine (Toradol 15mg Vial) 15 mg 1X ONCE 09/26/19 18:15 09/26/19 18:16 DC 09/26/19 18:15 15 MG Prochlorperazine Edisylate (Compazine) 10 mg 1X ONCE 09/26/19 18:15 09/26/19 18:16 DC 09/26/19 18:15 10 MG Sodium Chloride 1,000 ml @ 1,000 mls/hr 1X ONCE 09/26/19 18:15 09/26/19 19:14 DC 09/26/19 18:15 1,000 MLS/HR Allergies Allergies Allergies Coded Allergies Type Severity Reaction Last Updated Verified No Known Drug Allergies 10/24/13 No Physical Exam Physical Exam See Above Constitutional: Well developed, well nourished, no acute distress, non-toxic appearance. [] HENT: Normocephalic, atraumatic, bilateral external ears normal, nose normal. [] Eyes: PERRLA, EOMI, conjunctiva normal, no discharge. [] Neck: Normal range of motion, no tenderness, supple, no stridor. [] Cardiovascular:Heart rate regular rhythm, no murmur [] Lungs & Thorax: Bilateral breath sounds clear to auscultation, Respirations even and unlabored, no retractions, no respiratory distress [] Abdomen: Bowel sounds normal, soft, no tenderness Skin: Warm, dry, no erythema, no rash. [] Back: No tenderness Extremities: No cyanosis, ROM intact, no edema. [] Neurologic: Alert and oriented X 3, no focal deficits noted. [] Psychologic: Affect normal, judgement normal, mood normal. [] Current Patient Data Vital Signs Vital Signs Date Time Temp Pulse Resp B/P (MAP) Pulse Ox O2 Delivery O2 Flow Rate FiO2 09/26/19 18:20 98.3 106 18 112/67 (82) 98 Room Air 98.3 Lab Values Laboratory Tests Test 09/26/19 18:30 09/26/19 18:36 09/26/19 18:41 09/26/19 19:20 Urine Collection Type Unknown Urine Color Yellow Urine Clarity Clear Urine pH 6.0 Urine Specific [place] >=1.030 Urine Protein Negative mg/dL (NEG-TRACE) Urine Glucose (UA) Negative mg/dL (NEG) Urine Ketones (Stick) Trace mg/dL (NEG) Urine Blood Negative (NEG) Urine Nitrite Negative (NEG) Urine Bilirubin Small (NEG) Urine Urobilinogen Dipstick 1.0 mg/dL (0.2 mg/dL) Urine Leukocyte Esterase Negative (NEG) Urine RBC 3-5 /HPF (0-2) Urine WBC 1-4 /HPF (0-4) Urine Squamous Epithelial Cells Many /LPF Urine Bacteria Moderate /HPF (0-FEW) Urine Mucus Marked /LPF White Blood Count 4.9 x10^3/uL (4.0-11.0) Red Blood Count 3.31 x10^6/uL (3.50-5.40) L Hemoglobin 10.8 g/dL (12.0-15.5) L Hematocrit 32.6 % (36.0-47.0) L Mean Corpuscular Volume 99 fL (79-100) Mean Corpuscular Hemoglobin 33 pg (25-35) Mean Corpuscular Hemoglobin Concent 33 g/dL (31-37) Red Cell Distribution Width 13.5 % (11.5-14.5) Platelet Count 350 x10^3/uL (140-400) Neutrophils (%) (Auto) 38 % (31-73) Lymphocytes (%) (Auto) 51 % (24-48) H Monocytes (%) (Auto) 9 % (0-9) Eosinophils (%) (Auto) 2 % (0-3) Basophils (%) (Auto) 1 % (0-3) Neutrophils # (Auto) 1.9 x10^3/uL (1.8-7.7) Lymphocytes # (Auto) 2.5 x10^3/uL (1.0-4.8) Monocytes # (Auto) 0.4 x10^3/uL (0.0-1.1) Eosinophils # (Auto) 0.1 x10^3/uL (0.0-0.7) Basophils # (Auto) 0.0 x10^3/uL (0.0-0.2) Prothrombin Time 13.2 SEC (11.7-14.0) Prothrombin Time INR 1.0 (0.8-1.1) Activated Partial Thromboplast Time 29 SEC (24-38) D-Dimer (Claribel) 0.53 ug/mlFEU (0.00-0.50) H Sodium Level 141 mmol/L (136-145) Potassium Level 3.9 mmol/L (3.5-5.1) Chloride Level 105 mmol/L (98-107) Carbon Dioxide Level 25 mmol/L (21-32) Anion Gap 11 (6-14) Blood Urea Nitrogen 24 mg/dL (7-20) H Creatinine 0.9 mg/dL (0.6-1.0) Estimated GFR (Cockcroft-Gault) 86.7 BUN/Creatinine Ratio 27 (6-20) H Glucose Level 87 mg/dL (70-99) Calcium Level 8.7 mg/dL (8.5-10.1) Magnesium Level 1.9 mg/dL (1.8-2.4) Total Bilirubin 0.2 mg/dL (0.2-1.0) Aspartate Amino Transferase (AST) 15 U/L (15-37) Alanine Aminotransferase (ALT) 16 U/L (14-59) Alkaline Phosphatase 66 U/L (46-116) Creatine Kinase 48 U/L (26-192) Creatine Kinase MB (Mass) < 0.5 ng/mL (0.0-3.6) Creatine Kinase MB Relative Index % (0-4) Troponin I Quantitative < 0.017 ng/mL (0.000-0.055) Total Protein 8.7 g/dL (6.4-8.2) H Albumin 3.7 g/dL (3.4-5.0) Albumin/Globulin Ratio 0.7 (1.0-1.7) L POC Urine HCG, Qualitative Hcg negative (Negative) Influenza Type A Antigen Negative (NEGATIVE) Influenza Type B Antigen Negative (NEGATIVE) Laboratory Tests 09/26/19 18:36 Laboratory Tests 09/26/19 18:36 EKG EKG [] Radiology/Procedures Radiology/Procedures PROCEDURE: CT HEAD WO CONTRAST CT HEAD WO CONTRAST History: Headache, history of brain tumor Comparison: June 03, 2017 Technique: Noncontrast CT imaging was performed of the head. Exposure: One or more of the following individualized dose reduction techniques were utilized for this examination: 1. Automated exposure control 2. Adjustment of the mA and/or kV according to patient size 3. Use of iterative reconstruction technique. Findings: No acute extra-axial or parenchymal hemorrhage is identified. There is no significant intra-axial mass effect, midline shift, or extra-axial fluid collection. The amezquita-white differentiation of the major vascular territories is preserved. The ventricles, sulci, and cisterns are within normal limits in size and configuration. There is again cavum septum pellucidum. The mastoid air cells and the visualized paranasal sinuses are aerated. No acute calvarial abnormality is identified. 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 Impression: 1. No acute intracranial abnormality is identified. 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 PROCEDURE: CT ANGIOGRAPHY CHEST CT ANGIOGRAPHY CHEST INDICATION: Chest pain. Comparison: None. TECHNIQUE: Following the uneventful administration of intravenous contrast, 75 cc Omnipaque 350, axial CT sections were obtained through the lungs and upper abdomen. Multiplanar reconstructions and MIP images were obtained. PQRS compliance statement: One or more of the following individualized dose reduction techniques were utilized for this examination: 1. Automated exposure control 2. Adjustment of the mA and/or kV according to patient size 3. Use of iterative reconstruction technique FINDINGS: Pulmonary arteries: No evidence of pulmonary thrombolic disease Lungs and Airways: No pulmonary mass or consolidation. No abnormality of the central airways. Pleura: The pleural spaces are normal. Heart and Mediastinum: The visualized thyroid is normal in size and attenuation. No axillary or supraclavicular lymphadenopathy. No mediastinal, hilar or retrocrural lymphadenopathy. The heart and pericardium are within normal limits. The great vessels of the thorax are normal. Residual thymic tissue. Abdomen: Limited images through the upper abdomen show no abnormality of the visualized organs. Bones and Soft Tissues: Right convex thoracic curvature. IMPRESSION: 1. No evidence of pulmonary thromboembolic disease. 2. No pulmonary mass or consolidation. PROCEDURE: CHEST PA & LATERAL EXAM: PA and Lateral Views of the Chest DATE: 09/26/2019 6:05 PM INDICATION: Chest pain COMPARISON: No Prior FINDINGS: The heart is not enlarged. Evaluation of the mediastinum and annmarie limited given thoracal lumbar scoliosis and patient rotation. Compared to 02/25/2018 there are airspace opacities in the right infrahilar lung. No pleural effusion or pneumothorax. Thoracolumbar scoliosis. IMPRESSION: 1. Apparent opacities in the medial right infrahilar lung may represent developing consolidative process or atelectasis. [] Course & Med Decision Making Course & Med Decision Making Pertinent Labs and Imaging studies reviewed. (See chart for details) Pt is a 33-year-old female presented to emergency room with complaints of right- sided chest pain that began today, and generalized body aches, fatigue, headache, and nausea for the last 3 days. She was given 1 L of normal saline, 25 mg of IV Benadryl, 10 mg of IV Decadron, and 10 mg of IV Compazine. She reported relief of her headache and pain after these medications. CBC revealed hemoglobin of 10.8, hematocrit of 32.6 otherwise unremarkable; a T9 are within normal limits, d-dimer slightly elevated at 0.53; CMP revealed BUS and of 24 and a BUN/creatinine ratio of 27 troponin and CK markers were within normal limits, electrolytes unremarkable; UA is likely contaminated with many squamous cells, 3-5 red blood cells, 1-4 white blood cells, patient was asymptomatic. Patient was encouraged to take Tylenol or ibuprofen at home as needed for relief of pain. Follow-up with primary care doctor if symptoms persist, return to ER symptoms worsen. [] Dragon Disclaimer Dragon Disclaimer This electronic medical record was generated, in whole or in part, using a voice recognition dictation system. Departure Departure Impression: Primary Impression: Headache Additional Impression: Upper respiratory infection Disposition: 01 HOME, SELF-CARE Condition: STABLE Referrals: YARIEL CLIFFORD MD (PCP) Patient Instructions: General Headache Without Cause, [id number], Upper Respiratory Infection, Adult, [id number] Additional Instructions: Recommend use of a Cool mist humidifier in room at bedtime. Alternate Tylenol or ibuprofen as needed for pain/fever. Increase clear fluids. Avoid airway triggers such as smoke, fragrance, dust, and pollen. May take [id number] cough suppressants as needed. Follow-up with your primary care doctor if symptoms persist, return to the ER if symptoms worsen. Problem Qualifiers Primary Impression: Headache Headache type: unspecified Headache chronicity pattern: acute headache Intractability: not intractable Qualified Codes: R51 - Headache Additional Impression: Upper respiratory infection URI type: unspecified URI Qualified Codes: J06.9 - Acute upper respiratory infection, unspecified [facility] Sep 26, 2019 18:12
[2019-09-26] MEDS ORDERED: diphenhydrAMINE 50 MG/ML VIAL IVP ONE (18:15)
[2019-09-26] MEDS ORDERED: IV NORMAL SALINE 1000ML BAG 1,000 ML IV ONE (18:15)
[2019-09-26] MEDS ORDERED: DEXAMETHASONE SOD PHOS 20 MG/5 ML VIAL. IV ONE (18:15)
[2019-09-26] MEDS ORDERED: PROCHLORPERAZINE 10 MG/2 ML VIAL. IV ONE (18:15)
[2019-09-26] MEDS ORDERED: KETOROLAC 15 MG/ML VIAL. IV ONE (18:15)
[2019-09-26 18:55] LABS: BILIRUBIN,URINE SMALL (NEG); CLARITY,URINE CLEAR; COLOR,URINE YELLOW; NITRITE,URINE NEGATIVE (NEG); PROTEIN,URINE NEGATIVE (NEG-TRACE)
[2019-09-26 18:56] LABS: BASO % 1 % (0-3); CALCIUM 8.7 mg/dL (8.5-10.1); CREATININE 0.9 mg/dL (0.6-1.0); EOS # 0.1 x10^3/uL (0.0-0.7); EOS % 2 % (0-3); GFR 86.7; HEMATOCRIT 32.6 % (36.0-47.0); HEMOGLOBIN 10.8 g/dL (12.0-15.5); LYMPH # 2.5 x10^3/uL (1.0-4.8); LYMPH % 51 % (24-48); MEAN CORPUSCULAR HEMOGLOBIN 33 pg (25-35); MEAN CORPUSCULAR HGB CONC 33 g/dL (31-37); MEAN CORPUSCULAR VOLUME 99 fL (79-100); MONO # 0.4 x10^3/uL (0.0-1.1); MONO % 9 % (0-9); NEUT # 1.9 x10^3/uL (1.8-7.7); NEUT % 38 % (31-73); PLATELET COUNT 350 x10^3/uL (140-400); POTASSIUM 3.9 mmol/L (3.5-5.1); RED BLOOD COUNT 3.31 x10^6/uL (3.50-5.40); RED CELL DISTRIBUTION WIDTH 13.5 % (11.5-14.5); WHITE BLOOD COUNT 4.9 x10^3/uL (4.0-11.0)
[2019-09-26 19:01] LABS: ALBUMIN 3.7 g/dL (3.4-5.0); ALBUMIN/GLOBULIN RATIO 0.7 (1.0-1.7); MAGNESIUM 1.9 mg/dL (1.8-2.4); TOTAL BILIRUBIN 0.2 mg/dL (0.2-1.0); TOTAL PROTEIN 8.7 g/dL (6.4-8.2)
[2019-09-26 19:03] LABS: PROTHROMBIN TIME PATIENT 13.2 SEC (11.7-14.0)
[2019-09-26 19:05] LABS: SQUAMOUS EPITHELIAL CELL,UR MANY /LPF
[2019-09-26 19:06] LABS: BACTERIA,URINE MODERATE /HPF (0-FEW)
[2019-09-26 19:09] LABS: D-DIMER 0.53 ug/mlFEU (0.00-0.50)
[2019-09-26 19:31] LABS: CREATINE KINASE 48 U/L (26-192)
[2019-09-26] MEDS ORDERED: IOHEXOL 350 MG/ML 100 ML VIAL. IV ONE (19:45)
--- NOTE | 2019-09-26 19:48 | RAD ---
CT HEAD WO CONTRAST History: Headache, history of brain tumor Comparison: June 03, 2017 Technique: Noncontrast CT imaging was performed of the head. Exposure: One or more of the following individualized dose reduction techniques were utilized for this examination: 1. Automated exposure control 2. Adjustment of the mA and/or kV according to patient size 3. Use of iterative reconstruction technique. Findings: No acute extra-axial or parenchymal hemorrhage is identified. There is no significant intra-axial mass effect, midline shift, or extra-axial fluid collection. The amezquita-white differentiation of the major vascular territories is preserved. The ventricles, sulci, and cisterns are within normal limits in size and configuration. There is again cavum septum pellucidum. The mastoid air cells and the visualized paranasal sinuses are aerated. No acute calvarial abnormality is identified. 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 Impression: 1. No acute intracranial abnormality is identified. 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 Electronically signed by: Ramone Solano MD (09/26/2019 7:45 PM) [id number]
[2019-09-26 19:59] LABS: INFLUENZA A PATIENT NEGATIVE (NEGATIVE); INFLUENZA B PATIENT NEGATIVE (NEGATIVE)
[2019-09-26] MEDS ORDERED: CONTRAST GIVEN. MC PRN (20:00)
--- NOTE | 2019-09-26 20:33 | RAD ---
CT ANGIOGRAPHY CHEST INDICATION: Chest pain. Comparison: None. TECHNIQUE: Following the uneventful administration of intravenous contrast, 75 cc Omnipaque 350, axial CT sections were obtained through the lungs and upper abdomen. Multiplanar reconstructions and MIP images were obtained. PQRS compliance statement: One or more of the following individualized dose reduction techniques were utilized for this examination: 1. Automated exposure control 2. Adjustment of the mA and/or kV according to patient size 3. Use of iterative reconstruction technique FINDINGS: Pulmonary arteries: No evidence of pulmonary thrombolic disease Lungs and Airways: No pulmonary mass or consolidation. No abnormality of the central airways. Pleura: The pleural spaces are normal. Heart and Mediastinum: The visualized thyroid is normal in size and attenuation. No axillary or supraclavicular lymphadenopathy. No mediastinal, hilar or retrocrural lymphadenopathy. The heart and pericardium are within normal limits. The great vessels of the thorax are normal. Residual thymic tissue. Abdomen: Limited images through the upper abdomen show no abnormality of the visualized organs. Bones and Soft Tissues: Right convex thoracic curvature. IMPRESSION: 1. No evidence of pulmonary thromboembolic disease. 2. No pulmonary mass or consolidation. Electronically signed by: Ramone Retana MD (09/26/2019 8:31 PM) [id number]
[2019-09-26 20:39] VITALS: BP 111/73
--- NOTE | 2019-09-26 20:40 | RAD ---
EXAM: PA and Lateral Views of the Chest DATE: 09/26/2019 6:05 PM INDICATION: Chest pain COMPARISON: No Prior FINDINGS: The heart is not enlarged. Evaluation of the mediastinum and annmarie limited given thoracal lumbar scoliosis and patient rotation. Compared to 02/25/2018 there are airspace opacities in the right infrahilar lung. No pleural effusion or pneumothorax. Thoracolumbar scoliosis. IMPRESSION: 1. Apparent opacities in the medial right infrahilar lung may represent developing consolidative process or atelectasis. Electronically signed by: Randolph Arthur MD (09/26/2019 8:37 PM) [id number]
--- NOTE | 2019-09-27 05:58 | EKG ---
[facility] [address] [place] [address] Test Date: 2019-09-26 Test Time: 18:25:09 Pat Name: ENRIQUETA BRITO Department: Room: Gender: F Medical Technologist Clinical: : 1985 Requested By: NENA MIMS Order Number: [id number] Reading MD: Measurements Intervals Brinkley Rate: 102 P: 26 OR: 120 QRS: 29 QRSD: 96 T: -7 QT: 340 QTc: 447 Interpretive Statements SINUS TACHYCARDIA T ABNORMALITY IN INFERIOR LEADS ABNORMAL ECG RI6.01 No previous ECG available for comparison
== END 2019-09-26 20:58 | disposition home or self-care (01) ==
LOC: ER 17:34
DX: J06.9 Acute upper respiratory infection, unspecified (principal); R51 Headache; R07.89 Other chest pain; R53.83 Other fatigue; H53.8 Other visual disturbances; R11.0 Nausea; R42 Dizziness and giddiness; Z85.9 Personal history of malignant neoplasm, unspecified; M41.9 Scoliosis, unspecified; Z90.89 Acquired absence of other organs; Z98.890 Other specified postprocedural states; Z79.899 Other long term (current) drug therapy
CPT/HCPCS: 36415; 70450; 71046; 71275; 80053; 81001; 81025; 82553; 83735; 84484; 85025; 85379; 85610; 85730; 87086; 87804; 93005; 96361; 96374; 96375; 99285; J0780; J1100; J1200; J1885; J7030; Q9967

== ENCOUNTER 2020-02-21 19:01 | Emergency (ER) | payer SELFPAY ==
[~2020-02-21] VITALS: Ht 152.4 cm; Wt 37.3 kg
[2020-02-21] MEDS ORDERED: KETOROLAC 30 MG/ML VIAL. IVP ONE (20:15)
--- NOTE | 2020-02-21 20:30 | RAD ---
INDICATION: Reason: COUGH / Spl. Instructions: / History: COMPARISON: September 2019 FINDINGS: Single view of chest obtained. Scoliotic curvature of the spine is again seen. Cardiac silhouette is similar to prior. No definite new region of consolidation or edema. IMPRESSION: * No focal airspace consolidation or edema. Electronically signed by: Mark Arrieta MD (02/21/2020 8:28 PM) [id number]
[2020-02-21] MEDS ORDERED: ACET-704 PO (21:05)
[2020-02-21] MEDS ORDERED: AZIT250T PO (21:05)
--- NOTE | 2020-02-21 21:05 | PHYS DOC ---
Past Medical History Past Medical History: Cancer, Other Additional Past Medical Histor: Ovarian CA, Scoliosis, brain tumor Past Surgical History: , Oophorectomy, Other Additional Past Surgical Histo: Hernia repair, R OVARY Smoking Status: Never Smoker Alcohol Use: Occasionally Drug Use: None General Adult EDM: Chief Complaint: CHEST WALL PAIN HPI: HPI: Patient is a 34 year old female presents with a chief complaint of right-sided chest pain associated with cough. Patient states she has had symptoms for the last several days progressive becoming worse. Patient also noted to have nasal drainage. On exam patient's lungs are clear. Patient's chest wall tender to palpation. Patient denies any fevers. Review of Systems: Review of Systems: Constitutional: Denies fever or chills. [] Eyes: Denies change in visual acuity. [] HENT: Positive congestion Respiratory: Positive cough Cardiovascular: Positive chest pain GI: Denies abdominal pain, nausea, vomiting, bloody stools or diarrhea. [] : Denies dysuria. [] Musculoskeletal: Denies back pain or joint pain. [] Integument: Denies rash. [] Neurologic: Denies headache, focal weakness or sensory changes. [] Endocrine: Denies polyuria or polydipsia. [] Lymphatic: Denies swollen glands. [] Psychiatric: Denies depression or anxiety. [] Heart Score: HEART Score for Chest Pain: HEART Score for Chest Pain Response (Comments) Value History Slighlty/Non-Suspicious 0 ECG Normal 0 Age < 45 0 Risk Factors No Risk Factors 0 Troponin < Normal Limit 0 Total 0 Risk Factors: Risk Factors: DM, Current or recent (<one month) smoker, HTN, HLP, family history of CAD, obesity. Risk Scores: Score 0 - 3: 2.5% MACE over next 6 weeks - Discharge Home Score 4 - 6: 20.3% MACE over next 6 weeks - Admit for Clinical Observation Score 7 - 10: 72.7% MACE over next 6 weeks - Early Invasive Strategies Current Medications: Current Medications Medications (Trade) Dose Ordered Sig/Duy Start Time Stop Time Status Last Admin Dose Admin Ketorolac Tromethamine (Toradol 30mg Vial) 30 mg 1X ONCE 02/21/20 20:15 02/21/20 20:16 DC 02/21/20 20:26 30 MG Allergies: Allergies: Allergies Coded Allergies Type Severity Reaction Last Updated Verified No Known Drug Allergies 3/17/14 No Physical Exam: PE: Constitutional: Well developed, well nourished, no acute distress, non-toxic appearance. [] HENT: Normocephalic, atraumatic, bilateral external ears normal, oropharynx moist, no oral exudates, nose normal. [] Eyes: PERRLA, EOMI, conjunctiva normal, no discharge. [] Neck: Normal range of motion, no tenderness, supple, no stridor. [] Cardiovascular:Heart rate regular rhythm, no murmur [] chest wall tenderness to palpation pain reproducible Lungs & Thorax: Bilateral breath sounds clear to auscultation [] Abdomen: Bowel sounds normal, soft, no tenderness, no masses, no pulsatile bhargav s. [] Skin: Warm, dry, no erythema, no rash. [] Back: No tenderness, no CVA tenderness. [] Extremities: No tenderness, no cyanosis, no clubbing, ROM intact, no edema. [] Neurologic: Alert and oriented X 3, normal motor function, normal sensory function, no focal deficits noted. [] Psychologic: Affect normal, judgement normal, mood normal. [] Current Patient Data: Vital Signs: Vital Signs Date Time Temp Pulse Resp B/P (MAP) Pulse Ox O2 Delivery O2 Flow Rate FiO2 02/21/20 19:57 98.2 102 17 102/72 (82) 99 98.2 02/21/20 19:39 Room Air EKG: EKG: [] Radiology/Procedures: Radiology/Procedures: [] Impression: FINDINGS: Single view of chest obtained. Scoliotic curvature of the spine is again seen. Cardiac silhouette is similar to prior. No definite new region of consolidation or edema. IMPRESSION: * No focal airspace consolidation or edema. Electronically signed by: Mark Arrieta MD (02/21/2020 8:28 PM) [id number] Course & Med Decision Making: Course & Med Decision Making Pertinent Labs and Imaging studies reviewed. (See chart for details) [] Patient with upper respiratory symptoms. Patient's right chest wall is tender to palpation. Suspect chest discomfort musculoskeletal. Patient had coven swab and it is pending. Patient given COVID discharge precautions. Patient will be prescribed Tylenol 3 and Zithromax. Dragon Disclaimer: Dragon Disclaimer: This electronic medical record was generated, in whole or in part, using a voice recognition dictation system. Departure Departure Impression: Primary Impression: Cough Additional Impressions: Chest pain Person under investigation for COVID-19 Disposition: 01 HOME, SELF-CARE Condition: STABLE Referrals: TALYA SALINAS APRN (PCP) Patient Instructions: Chest Pain (Nonspecific), Cough, Adult Additional Instructions: You have been tested for or diagnosed with COVID-19. It is an infection caused by a new type of coronavirus. COVID-19 will cause cold-like or mild flu symptoms in most. It can cause more severe symptoms like problems breathing in some. There is no treatment for COVID-19. The body will clear the infection over time. Self-care will help to ease discomfort. Steps to Take: Self-Care Rest as needed. Healthy habits may help you feel better. Steps include: Choose healthy foods including fruits and vegetables. Drink water throughout the day. Get plenty of sleep each night. If you smoke, try to quit. It may ease breathing. Avoid alcohol. Keep Others Healthy The virus can spread to others. Droplets are released every time you sneeze or cough. The droplets can get into the mouth, nose, or eyes of people near you and lead to infection. To lower the chances of spreading COVID-19 to others: Stay at home until your doctor has said it is safe to leave. If you tested positive this will mean staying isolated until both of the following are true: At least 7 days have passed since the start of illness. You are free of fever for at least 72 hours without the use of medicine. During this time: - Avoid public areas, events, or transportation. Do not return to work or school until your doctor has said it is safe to do so. - Call ahead if you need to go to a medical center. Let them know you may have COVID-19. It will help them guide you where to go. They may also ask you to wear a facemask when you come to the office. - If you call for emergency medical services, let them know you may have COVID- 19. While at home: - Try to avoid close contact with others. Stay about 6 feet away. - If possible, spend most of your time in a separate room from others. - Use a face mask if you will be in close contact with others such as sharing a room or vehicle. - Have someone wipe down common surfaces in the home. Use household cage/vault supervisor every day on areas like doorknobs, counters, or sinks. - Cough or sneeze into a tissue. Throw the tissue away right after use. If a tissue is not available, cough or sneeze into your elbow. - Wash your hands often. Wash them after sneezing or coughing. Use soap and water and wash for at least 20 seconds. Alcohol based hand paper cleaner can be used if soap and water is not available. - Do not prepare food for others. Avoid sharing personal items like forks, spoons, or toothbrushes. - Avoid close contact with pets while you are sick. There is no evidence of the virus passing to pets. This is a safety step until more is known about this virus. Isolation can be frustrating. Social interaction can help. Keep in touch with friends and family through phone and tech options. You can still interact with others in you r home, just keep a safe distance of about 6 feet. Follow-up: Your doctors office will check in with you to see if there are any changes in your health. You may be asked to keep track of symptoms to share with them. They will also let you know when you are clear to be in public again. Problems to Look Out For: Contact your doctor if your recovery is not going as you expect. Get emergency care if you have problems such as: - Trouble breathing - Nonstop chest pain or pressure - Changes in awareness, confusion, or problems waking - Lips or face have bluish color - Worsening of symptoms If you think you have an emergency, call for emergency medical services right away. As taken from [facility] Acetaminophen With Codeine (TYLENOL WITH CODEINE #3 TABLET) 1 Each Tablet 1 TAB PO PRN Q6HRS PRN for pain MDD 4 Tablet(s) for 7 Days, #20 TAB 0 Refills Prov: RAMIRO MOJICA I DO 02/21/20 Azithromycin (ZITHROMAX) 250 Mg Tablet 1 PKG PO UD, #6 TAB Prov: RAMIRO MOJICA I DO 02/21/20 Justicifation of Admission Dx: Justifications for Admission: Justification of Admission Dx: N/A RAMIRO MOJICA I DO Feb 21, 2020 21:05
[2020-02-21 21:12] VITALS: BP 118/62
--- NOTE | 2020-02-23 11:36 | NUR ---
IP: Informed pt of negative COVID results. Pt verbalized understanding.
== END 2020-02-21 21:32 | disposition home or self-care (01) ==
LOC: ER 19:01
DX: R05 Cough (principal); Z20.828 Contact with and (suspected) exposure to other viral communicable diseases; R07.89 Other chest pain; R09.81 Nasal congestion; M41.9 Scoliosis, unspecified; Z98.890 Other specified postprocedural states; Z90.89 Acquired absence of other organs
CPT/HCPCS: 71045; 96374; 99285; J1885; U0003

== ENCOUNTER → 2020-10-11 | Outpatient (CLI) | payer OTHER ==
[~2020-10-11] MED LIST changes: +ACET-704 PO; -CIPR500T PO; +CIPR500T2 PO
== END ==
LOC: SPEC 11:01
PROVIDERS: ATTEND Obstetrics & Gynecology
DX: N73.0 Acute parametritis and pelvic cellulitis (principal)
CPT/HCPCS: Q0111

== ENCOUNTER → 2021-06-07 | Outpatient (CLI) | payer OTHER ==
[~2021-06-07] MED LIST changes: +CYCL10TA19 PO; -CYCL10TA2 PO; -DOXY100C2 PO; +DOXY100C3 PO; -LIDO30CR TP; +LIDO30CR2 TP
--- NOTE | 2021-06-07 16:38 | RAD ---
EXAM: Pelvic sonogram. HISTORY: Menorrhagia. TECHNIQUE: Sonographic imaging of the pelvis was performed. COMPARISON: None. FINDINGS: The uterus measures 11.0 x 4.7 x 2.7 cm. The endometrial stripe measures less than 2 mm in thickness. The ovaries are normal in size and demonstrate normal blood flow. There is a 3.2 cm simple right ovarian cyst. There is no pelvic free fluid. IMPRESSION: 1. 3.2 cm simple right ovarian cyst. 2. Thin endometrial stripe. Electronically signed by: Inez Ceron MD (06/07/2021 4:35 PM) [id number]
== END ==
LOC: US 15:00
PROVIDERS: ATTEND Nurse Practitioner Family
DX: N83.291 Other ovarian cyst, right side (principal); N92.0 Excessive and frequent menstruation with regular cycle
CPT/HCPCS: 76856

== ENCOUNTER → 2021-07-24 | Outpatient (CLI) | payer MEDICARE, OTHER ==
--- NOTE | 2021-07-24 17:23 | RAD ---
US PELVIS COMPLETE History: Reason: RT OV CYST / Spl. Instructions: / History: Comparison: June 07, 2021 Technique: Grayscale and color Doppler imaging of the pelvis was performed using transabdominal techn ique. Findings: The uterus measures 10.1 x 3.9 x 2.8 cm. Uterus has an unremarkable appearance. The endometrial str ipe measures 4 mm. Right ovary measures 3.6 x 3.6 x 3.1 cm. Right ovarian cyst measures 3.1 x 2.7 x 2.5 cm. Left ovary measures 2.3 x 1.5 x 1.4 cm. Dominant left ovarian follicle measures 1.2 cm. Normal Doppler flow to the ovaries. No adnexal masses are seen. IMPRESSION: 1. Unchanged simple right ovarian cyst. Electronically signed by: Silvestre Azevedo DO (07/24/2021 5:21 PM) [id number]
== END ==
LOC: US 14:26
PROVIDERS: ATTEND Obstetrics & Gynecology
DX: N83.291 Other ovarian cyst, right side (principal)
CPT/HCPCS: 76856

== ENCOUNTER → 2021-08-13 | Outpatient (CLI) | payer MEDICARE, OTHER ==
[~2021-08-13] MED LIST changes: +OXYC1TAB15 PO
== END ==
LOC: LAB 15:15
PROVIDERS: ATTEND Obstetrics & Gynecology
DX: Z01.812 Encounter for preprocedural laboratory examination (principal); Z20.822 Contact with and (suspected) exposure to COVID-19
CPT/HCPCS: U0003; U0005

== ENCOUNTER 2021-08-15 08:50 | Day surgery (SDC) | payer MEDICARE, OTHER ==
[~2021-08-15] VITALS: Ht 147.3 cm; Wt 43.6 kg
[~2021-08-15 08:50] MED LIST changes: +BUPIVACAINE-EPI 0.25% 30 ML VIAL KIT. ONE; +DEXAMETHASONE SOD PHOS 4 MG/ML VIAL ONE; +HYDROmorphone 2 MG/ML INJ. IVP PRN; +IV RINGERS,LACTATED 1000ML 1,000 ML IV SCH; +LIDOCAINE 1% PF 5 ML VIAL. ONE; +ONDANSETRON PF 4 MG/2 ML VIAL. ONE; -OXYC1TAB15 PO; +PROCHLORPERAZINE 10 MG/2 ML VIAL. IVP PRN; +PROPOFOL 10 MG/ML (20ML) VIAL. IV ONE; +ROCURONIUM 50 MG/5 ML VIAL. ONE; +SURGICEL HEMOSTAT 4X8 EACH. ONE; +ceFAZolin SODIUM IV Push 1 GM VIAL. IVP PRN; +fentaNYL PF VIAL 100 MCG/2 ML VIAL IVP PRN; +fentaNYL PF VIAL 100 MCG/2 ML VIAL ONE
[2021-08-15 09:24] VITALS: BP 143/99
[2021-08-15] MEDS ORDERED: NEOSTIGMINE METHYLSULFATE 5 MG/5 ML SYRINGE. ONE (10:08)
[2021-08-15] MEDS ORDERED: SCOPOLAMINE 1.5MG PATCH. TD ONE (10:15)
[2021-08-15] MEDS ORDERED: SUGAMMADEX SODIUM 200 MG/2 ML VIAL. IVP ONE ×2 (11:15→11:45)
--- NOTE | 2021-08-15 11:55 | PDOC4 ---
BRIEF OPERATIVE NOTE Date: Aug 15, 2021 Pre-Op Diagnosis ROV Cyst Post-Op Diagnosis Same Procedure Performed [facility] ROV Cystectomy Surgeon Dr. Andre Hog Operator Roaster Supervisor: Abdi Anesthesia Type: General Blood Loss 10 ml Specimens Obtained ROV cyst wall Findings Pelvic sidewall adhesions, uterine adhesions, ROV cyst 4 cm size; nml fallopian tubes luis antonio., nml BRITANY Complications none Operative Note see dictation CASIMIRO ANDRE Jr, MD Aug 15, 2021 11:55
[2021-08-15] MEDS ORDERED: OXYC1TAB15 PO (11:56)
--- NOTE | 2021-08-15 11:57 | DISCH ---
DISCHARGE INSTRUCTIONS Condition on Discharge Condition on Discharge: Stable Activity After Discharge Activity Instructions for Disc: Activity as tolerated Lifting Instructions after Dis: No heavy lifting Driving Instructions after Dis: Do not drive today Diet after Discharge Diet after Discharge: Regular Contacting the DREvelyn after DC Call your doctor for: Concerns you may have Follow-Up Follow up with: Dr. Andre in 1 week CASIMIRO ANDRE Jr, MD Aug 15, 2021 11:57
[2021-08-15] MEDS ORDERED: fentaNYL PF VIAL 100 MCG/2 ML VIAL ONE (12:01)
--- NOTE | 2021-08-15 12:10 | OP ---
DATE OF SURGERY: 08/15/2021 PREOPERATIVE DIAGNOSIS: Right ovarian cyst. POSTOPERATIVE DIAGNOSIS: Right ovarian cyst. PROCEDURE: Laparoscopic right ovarian cystectomy. SURGEON: Williams Andre MD. ART CONSERVATOR: Abdi. ANESTHESIA: GETA. ESTIMATED BLOOD LOSS: 10 mL. COMPLICATIONS: None. FINDINGS: Pelvic sidewall adhesions, uterine adhesions, right ovarian cyst 4 cm size, normal fallopian tubes bilaterally, normal left ovary. SUMMARY: A 35-year-old female with pelvic pain and documented right ovarian cyst on pelvic sonogram that did not resolve, size was 3-4 cm size. She was counseled on the risks, benefits, and expectation of laparoscopic right ovarian cystectomy and voiced clear understanding to proceed. DESCRIPTION OF PROCEDURE: The patient was taken to surgery suite and placed in dorsal lithotomy position, was prepped with Betadine solution for vaginal prep and ChloraPrep for abdominal prep. After adequate anesthesia, bivalve speculum was placed vaginally. Anterior lip of the cervix grasped with single tooth tenaculum. The uterine acorn manipulator was then placed. The bivalve speculum was removed. Attention was now placed on abdomen. Small transverse skin incision was made just below the umbilicus with a scalpel. The Veress needle was then placed through the infraumbilical incision site. The abdomen was allowed to insufflate up to 1-1/2 liters CO2 gas. The Veress needle was then removed. A 5 mm trocar was placed. Scope was positioned. There were multiple omental adhesions to the abdominal wall and pelvic sidewall as well as the uterus that was adhered to the anterior abdominal wall. The left fallopian tube and ovary appeared normal. The right fallopian tube appeared normal. The right ovary demonstrated a 4 cm size cyst. Two additional incisions made in the left lower quadrant in which a 5 mm and 8 mm trocar was placed with aid of graspers and the EndoShears. A few of the omental adhesions were removed. The right ovary was grasped. The ovary was incised with the EndoShears. There was dark colored fluid removed from the ovarian cyst with the suction conventional underwriter. The portion of the left ovarian cyst wall was excised using the EndoShears. The remaining right ovarian cyst wall was fulgurated with cautery and was hemostatic. Suction irrigation was utilized to verify good hemostasis. Additional omental adhesions were removed with the aid of the EnSeal device. A small amount of normal saline was left in posterior cul-de-sac. The trocars were then removed under direct visualization. The abdomen was allowed to deflate as much as possible along with mechanical manipulation. The 3 skin incisions were reapproximated using 4-0 Vicryl suture in subcuticular manner. A 0.25% Marcaine with epinephrine was injected at each incision site. Uterine acorn manipulator and single tooth tenaculum were removed. The patient tolerated the procedure well and was taken to recovery room in stable condition. Sponge and needle count correct x 3. DANTE/IFTIKHAR DR: Nicolas TID: [id number]
[2021-08-15] MEDS ORDERED: MORPHINE SULFATE 2 MG/ML INJ. ONE (12:18)
[2021-08-15] MEDS: MORPHINE SULFATE 2 MG/ML INJ. IVP PRN ×2 (12:21→12:32)
[2021-08-15] MEDS ORDERED: oxyCODONE/APAP 5/325 1 TAB TABLET PO ONE (12:45)
[2021-08-15 13:11] VITALS: BP 100/65
--- NOTE | 2021-08-16 16:09 | PATHOLOGY ---
[facility] Accession Number: [id number] . 01 Material submitted: . ovary - RIGHT OVARIAN CYST. Modifiers: right . 01 Clinical history: . LAP R OVARIAN CYSTECTOMY . 02 Diagnosis: Ovarian tissue, laparoscopic right ovarian cystectomy: - Cystic endometriosis. (JPM:long; 08/16/2021) S 08/16/2021 1543 Local . 02 Comment: There is no evidence of malignancy. (JPM:long; 08/16/2021) . 02 Electronically signed: . Fortino Barrientos MD, Pathologist NPI- [id number] . 01 Gross description: . The specimen is received in formalin, labeled "cSott Rosales, right ovarian cyst". Received is a segment of pink-amezquita fibromembranous tissue measuring 2.0 x 1.8 x 0.3 cm in greatest dimensions. The specimen is serially sectioned and entirely submitted in cassettes A1 and A2. ([facility]; 08/15/2021) QAC/QA 08/16/2021 1351 Local . 02 Pathologist provided ICD-10: N83.201 . 02 CPT . 786541 Specimen Comment: A courtesy copy of this report has been sent to [phone], [phone] Specimen Comment: [id number] Specimen Comment: Report sent to / DR SALINAS Performed at: 01 [facility] [address], [place] [id number] MD Alfredo Spence MD Phone: [phone] Performed at: 02 [facility] [address] [place], [place] [id number] MD Fortino Barrientos MD Phone: [phone]
== END 2021-08-15 13:35 | disposition home or self-care (01) ==
LOC: SURG 08:50
PROVIDERS: ATTEND Obstetrics & Gynecology
DX: N83.291 Other ovarian cyst, right side (principal); N73.6 Female pelvic peritoneal adhesions (postinfective); J45.909 Unspecified asthma, uncomplicated; Z79.899 Other long term (current) drug therapy; Z98.890 Other specified postprocedural states; Z72.89 Other problems related to lifestyle
CPT/HCPCS: 58662; 81025; J0690; J0780; J1100; J2270; J2405; J2704; J2710; J3010; J3490; A4209; A4452; A4930; A6219

== ENCOUNTER 2021-12-03 10:53 | Inpatient (IN) | payer MEDICARE, OTHER ==
[~2021-12-03] VITALS: Ht 152.4 cm; Wt 41.8 kg
[~2021-12-03 10:53] MED LIST changes: -BUPIVACAINE-EPI 0.25% 30 ML VIAL KIT. ONE; -DEXAMETHASONE SOD PHOS 4 MG/ML VIAL ONE; -HYDROmorphone 2 MG/ML INJ. IVP PRN; -IV RINGERS,LACTATED 1000ML 1,000 ML IV SCH; -LIDOCAINE 1% PF 5 ML VIAL. ONE; -ONDANSETRON PF 4 MG/2 ML VIAL. ONE; +OXYC1TAB15 PO; -PROCHLORPERAZINE 10 MG/2 ML VIAL. IVP PRN; -PROPOFOL 10 MG/ML (20ML) VIAL. IV ONE; -ROCURONIUM 50 MG/5 ML VIAL. ONE; -SURGICEL HEMOSTAT 4X8 EACH. ONE; -ceFAZolin SODIUM IV Push 1 GM VIAL. IVP PRN; -fentaNYL PF VIAL 100 MCG/2 ML VIAL IVP PRN; -fentaNYL PF VIAL 100 MCG/2 ML VIAL ONE
[2021-12-03] MEDS ORDERED: IV NORMAL SALINE 1000ML BAG 1,000 ML IV ONE ×2 (11:15→12:30)
--- NOTE | 2021-12-03 11:15 | ED.ADGEN ---
Past Medical History Past Medical History: Cancer, Other Additional Past Medical Histor: OVARIAN CA,NO CURRENT [place], SCOLIOSIS Past Surgical History: Additional Past Surgical Histo: R OVARIAN CYST REMOVAL OVARIAN CA Smoking Status: Never Smoker Alcohol Use: Occasionally Drug Use: None General Adult EDM: Chief Complaint: ALLERGIC REACTION HPI: HPI: Patient is a 36-year-old female who arrives ambulatory to the emergency department complaining of waking this morning with swelling of her upper lip. Patient reports this is happened previously and she took Benadryl prior to arrival. Patient states she has some mild difficulty with swallowing. Patient states despite this she is not had any new medications. She further denies recent fevers however she has been recently diagnosed with ovarian cancer. She denies any chest pain or shortness of air at this time. She is awake, alert and uncomfortable appearing. Review of Systems: Review of Systems: Constitutional: Denies fever or chills. [] Eyes: Denies change in visual acuity. [] HENT: Swelling of upper lip. Denies nasal congestion or sore throat. [] Respiratory: Denies cough or shortness of breath. [] Cardiovascular: Denies chest pain or edema. [] GI: Reports dysphagia. Denies abdominal pain, nausea, vomiting, bloody stools or diarrhea. [] : Denies dysuria. [] Musculoskeletal: Denies back pain or joint pain. [] Integument: Denies rash. [] Neurologic: Denies headache, focal weakness or sensory changes. [] Endocrine: Denies polyuria or polydipsia. [] Lymphatic: Denies swollen glands. [] Psychiatric: Denies depression or anxiety. [] Family History: Family History: Noncontributory Current Medications: Current Medications Medications (Trade) Dose Ordered Sig/Duy Start Time Stop Time Status Last Admin Dose Admin Diphenhydramine HCl (Benadryl) 50 mg STK-MED ONCE 12/03/21 11:17 12/03/21 11:17 DC Famotidine (Pepcid Vial) 20 mg STK-MED ONCE 12/03/21 11:17 12/03/21 11:17 DC Methylprednisolone Sodium Succinate (SOLU-Medrol 125MG VIAL) 125 mg 1X ONCE 12/03/21 11:45 12/03/21 11:46 DC 12/03/21 11:23 125 MG Ondansetron HCl (Zofran) 4 mg PRN Q8HRS PRN 12/03/21 12:30 12/04/21 12:29 Sodium Chloride 1,000 ml @ 1,000 mls/hr 1X ONCE 12/03/21 12:30 12/03/21 13:29 DC 12/03/21 12:30 1,000 MLS/HR Allergies: Allergies: Allergies Coded Allergies Type Severity Reaction Last Updated Verified No Known Drug Allergies 08/15/21 No Physical Exam: PE: Constitutional: Well developed, well nourished, no acute distress, non-toxic appearance. [] HENT: Patient has features consistent with acute angioedema. There is swelling of the upper lip which is quite impressive. There is minimal swelling of the lower lip however the tongue appears to be normal-appearing. Normocephalic, at raumatic, bilateral external ears normal, oropharynx moist, no oral exudates, nose normal. [] Eyes: PERRLA, EOMI, conjunctiva normal, no discharge. [] Neck: Normal range of motion, no tenderness, supple, no stridor. [] Cardiovascular: Tachycardia. No murmur [] Lungs & Thorax: Bilateral breath sounds clear to auscultation [] Abdomen: Bowel sounds normal, soft, no tenderness, no masses, no pulsatile masses. [] Skin: Warm, dry, no erythema, no rash. [] Back: No tenderness, no CVA tenderness. [] Extremities: No tenderness, no cyanosis, no clubbing, ROM intact, no edema. [] Neurologic: Alert and oriented X 3, normal motor function, normal sensory function, no focal deficits noted. [] Psychologic: Affect normal, judgement normal, mood normal. [] Current Patient Data: Labs: Laboratory Tests Test 12/03/21 11:10 White Blood Count 6.0 x10^3/uL (4.0-11.0) Red Blood Count 4.25 x10^6/uL (3.50-5.40) Hemoglobin 12.7 g/dL (12.0-15.5) Hematocrit 37.9 % (36.0-47.0) Mean Corpuscular Volume 89 fL (79-100) Mean Corpuscular Hemoglobin 30 pg (25-35) Mean Corpuscular Hemoglobin Concent 34 g/dL (31-37) Red Cell Distribution Width 13.2 % (11.5-14.5) Platelet Count 352 x10^3/uL (140-400) Neutrophils (%) (Auto) 54 % (31-73) Lymphocytes (%) (Auto) 38 % (24-48) Monocytes (%) (Auto) 5 % (0-9) Eosinophils (%) (Auto) 3 % (0-3) Basophils (%) (Auto) 1 % (0-3) Neutrophils # (Auto) 3.3 x10^3/uL (1.8-7.7) Lymphocytes # (Auto) 2.3 x10^3/uL (1.0-4.8) Monocytes # (Auto) 0.3 x10^3/uL (0.0-1.1) Eosinophils # (Auto) 0.2 x10^3/uL (0.0-0.7) Basophils # (Auto) 0.1 x10^3/uL (0.0-0.2) Laboratory Tests 12/03/21 11:10 Vital Signs: Vital Signs Date Time Temp Pulse Resp B/P (MAP) Pulse Ox O2 Delivery O2 Flow Rate FiO2 12/03/21 12:10 108 16 133/98 (110) 100 12/03/21 11:55 Room Air EKG: EKG: [] Heart Score: C/O Chest Pain: No Risk Factors: Risk Factors: DM, Current or recent (<one month) smoker, HTN, HLP, family history of CAD, obesity. Risk Scores: Score 0 - 3: 2.5% MACE over next 6 weeks - Discharge Home Score 4 - 6: 20.3% MACE over next 6 weeks - Admit for Clinical Observation Score 7 - 10: 72.7% MACE over next 6 weeks - Early Invasive Strategies Radiology/Procedures: Radiology/Procedures: [] Course & Med Decision Making: Course & Med Decision Making Pertinent Labs and Imaging studies reviewed. (See chart for details) The patient remains awake, alert and does appear to be improved. Nonetheless patient was taken to the room and IV access was established. Patient was provided IV fluids as well as Benadryl, Pepcid and Solu-Medrol. Patient does appear to not have any respiratory distress however she does not have any appreciable change in her swelling. It does not appear that her intraoral mucosa is affected. Nonetheless because she is experiencing some mild difficulty with swallowing, I advised that she be admitted to the hospital for continued treatment and observation. The patient understands and has agreed to do so. She has been admitted to the hospitalist [facility] for this purpose. She is nontoxic-appearing and stable for transport to the floor. [] Dragon Disclaimer: Dragon Disclaimer: This electronic medical record was generated, in whole or in part, using a voice recognition dictation system. Departure Departure Impression: Primary Impression: Angioedema Additional Impression: History of ovarian cancer Disposition: ADMITTED INPATIENT Admitting Physician: JEROMY Condition: IMPROVED Referrals: TALYA SALINAS APRN (PCP) Problem Qualifiers RADHA CEDEÑO DO Dec 03, 2021 11:15
[2021-12-03] MEDS ORDERED: diphenhydrAMINE 50 MG/ML VIAL ONE (11:17)
[2021-12-03] MEDS ORDERED: FAMOTIDINE 20 MG/2 ML VIAL ONE (11:17)
[2021-12-03] MEDS ORDERED: diphenhydrAMINE 50 MG/ML VIAL IVP ONE (11:45)
[2021-12-03] MEDS ORDERED: ONDANSETRON PF 4 MG/2 ML VIAL. IVP ONE (11:45)
[2021-12-03] MEDS ORDERED: FAMOTIDINE 20 MG/2 ML VIAL IVP ONE (11:45)
[2021-12-03] MEDS ORDERED: methylPREDNISolone SOD SUCC PF 125 MG/2 ML VIAL. IV ONE (11:45)
[2021-12-03 11:52] LABS: BASO # 0.1 x10^3/uL (0.0-0.2); BASO % 1 % (0-3); EOS # 0.2 x10^3/uL (0.0-0.7); EOS % 3 % (0-3); HEMATOCRIT 37.9 % (36.0-47.0); HEMOGLOBIN 12.7 g/dL (12.0-15.5); LYMPH # 2.3 x10^3/uL (1.0-4.8); LYMPH % 38 % (24-48); MEAN CORPUSCULAR HEMOGLOBIN 30 pg (25-35); MEAN CORPUSCULAR HGB CONC 34 g/dL (31-37); MEAN CORPUSCULAR VOLUME 89 fL (79-100); MONO # 0.3 x10^3/uL (0.0-1.1); MONO % 5 % (0-9); NEUT # 3.3 x10^3/uL (1.8-7.7); NEUT % 54 % (31-73); PLATELET COUNT 352 x10^3/uL (140-400); RED BLOOD COUNT 4.25 x10^6/uL (3.50-5.40); RED CELL DISTRIBUTION WIDTH 13.2 % (11.5-14.5)
[2021-12-03] MEDS ORDERED: ONDANSETRON PF 4 MG/2 ML VIAL. IVP PRN (12:30)
--- NOTE | 2021-12-03 14:19 | HP ---
DATE OF SERVICE: 12/03/2021 ADMIT DATE: 12/03/2021 CHIEF COMPLAINT: Swollen lips. HISTORY OF PRESENT ILLNESS: The patient is a pleasant 36-year-old female who has a history of recurrent angioedema. She is not sure what is causing it. She is on multiple medications. Once again, she presents with swollen lips. It appears she has recurrent angioedema. I discussed the case with ER physician. We are going to admit the patient and give her steroids, Benadryl, and Pepcid. PAST MEDICAL HISTORY: Possible ovarian cancer, polypharmacy, migraine headaches, arthritis, chronic pain, muscle spasms and asthma. ALLERGIES: PROBABLY [place] INHIBITORS. SHE PROBABLY HAS OTHER ALLERGIES, BUT SHE IS NOT SURE. FAMILY HISTORY: Hypertension. SOCIAL HISTORY: She does not drink, smoke or take drugs. MEDICATIONS: Reviewed. She is on ProAir, cyclobenzaprine, oxycodone, Ultram and Imitrex. REVIEW OF SYSTEMS: GENERAL: No history of weight change, weakness or fevers. SKIN: No bruising, hair changes or rashes. EYES: No blurred, double or loss of vision. NOSE AND THROAT: No history of nosebleeds, hoarseness or sore throat. HEART: No history of palpitations, chest pain or shortness of breath on exertion. LUNGS: Denies cough, hemoptysis, wheezing or shortness of breath. GASTROINTESTINAL: Denies changes in appetite, nausea, vomiting, diarrhea or constipation. GENITOURINARY: No history of frequency, urgency, hesitancy or nocturia. NEUROLOGIC: Denies history of numbness, tingling, tremor or weakness. PSYCHIATRIC: No history of panic, anxiety or depression. ENDOCRINE: No history of heat or cold intolerance, polyuria or polydipsia. EXTREMITIES: Denies muscle weakness, joint pain, pain on walking or stiffness. HEENT: She complains of swollen lips. PHYSICAL EXAMINATION: VITALS: Within normal limits and are stable. GENERAL: No apparent distress. Alert and oriented. HEENT: Her lips are quite swollen. EYES: Extraocular muscles are intact, pupils are equally round and reactive to light and accommodation. MUSCULOSKELETAL: Well developed, well nourished, good range of motion. ENDOCRINE: No thyromegaly was palpated. LYMPHATICS: No cervical chain or axillary nodes were noted. HEMATOPOIETIC: No bruising. NECK: Supple, no JVD, no thyromegaly was noted. LUNGS: Clear to auscultation in all lung beebe without rhonchi or wheezing. HEART: RRR, S1, S2 present. Peripheral pulses intact, no obvious murmurs were noted. ABDOMEN: Soft, nontender. Positive bowel sounds no organomegaly, normal bowel sounds. EXTREMITIES: Without any cyanosis, clubbing, or edema. Pedal pulses intact, Homans sign is negative. NEUROLOGIC: Normal speech, normal tone. A and O x 3, moves all extremities, no obvious focal deficits. PSYCHIATRIC: Normal affect, normal mood. Stable. SKIN: No ulcerations or rashes, good skin turgor, no jaundice. VASCULAR: Good capillary refill, neurovascular bundle appears to be intact. ASSESSMENT AND PLAN: Angioedema. The patient will be admitted. We will start IV Benadryl, IV Pepcid, IV Solu-Medrol. Deep venous thrombosis prophylaxis. Full code. IV hydration. LJ DR: Mimi TID: [id number]
[2021-12-03] MEDS: methylPREDNISolone SOD SUCC PF 40 MG/ML VIAL. IV SCH ×2 (14:42→21:21)
[2021-12-03 14:46] LABS: CALCIUM 8.7 mg/dL (8.5-10.1); CREATININE 0.8 mg/dL (0.6-1.0); GFR 97.7; POTASSIUM 3.9 mmol/L (3.5-5.1)
[2021-12-03 14:47] VITALS: BP 146/99
[2021-12-03] MEDS ORDERED: ACETAMINOPHEN 325 MG TABLET. PO PRN (15:45)
[2021-12-03] MEDS: traMADol 50 MG TABLET PO SCH (18:22)
[2021-12-03] MEDS: CYCLOBENZAPRINE 10 MG TABLET. PO SCH (18:23)
[2021-12-03] MEDS: diphenhydrAMINE 50 MG/ML VIAL IVP PRN (18:24)
[2021-12-03 19:00] VITALS: BP 130/84
[2021-12-03] MEDS ORDERED: CYCLOBENZAPRINE 10 MG TABLET. PO SCH (21:00)
[2021-12-03] MEDS: FAMOTIDINE 20 MG/2 ML VIAL IVP SCH (21:22)
[2021-12-03] MEDS: oxyCODONE/APAP 5/325 1 TAB TABLET PO PRN (21:25)
[2021-12-03 23:05] VITALS: BP 118/86
[2021-12-04] MEDS: traMADol 50 MG TABLET PO SCH ×3 (00:14→12:03)
[2021-12-04] MEDS: diphenhydrAMINE 50 MG/ML VIAL IVP PRN ×2 (00:14→06:25)
[2021-12-04 03:17] VITALS: BP 120/79
[2021-12-04] MEDS: oxyCODONE/APAP 5/325 1 TAB TABLET PO PRN (06:25)
[2021-12-04 07:00] VITALS: BP 138/87
[2021-12-04] MEDS: methylPREDNISolone SOD SUCC PF 40 MG/ML VIAL. IV SCH (10:06)
[2021-12-04] MEDS: CYCLOBENZAPRINE 10 MG TABLET. PO SCH (10:06)
[2021-12-04] MEDS: FAMOTIDINE 20 MG/2 ML VIAL IVP SCH (10:06)
[2021-12-04] MEDS ORDERED: PRED20TA PO (10:56)
[2021-12-04] MEDS ORDERED: DIPH25TA64 PO (10:56)
[2021-12-04] MEDS ORDERED: OXYC1TAB15 PO (10:56)
[2021-12-04 11:00] VITALS: BP 125/89
--- NOTE | 2021-12-04 11:01 | DISCH ---
DISCHARGE INSTRUCTIONS Condition on Discharge Condition on Discharge: Stable Activity After Discharge Activity Instructions for Disc: Activity as tolerated Exercise Instruction after Dis: Walk 30 min, 5 x per week Driving Instructions after Dis: Do not drive today Diet after Discharge Diet after Discharge: Cardiac, Regular Checks after Discharge Checks after discharge: Check your Temp as needed DC Comment: C3-C4 levels drawn during this admission, please follow-up with the results Contacting the DR. after DC Call your doctor for: If your condition worsens (Worsening facial swelling or difficulty breathing) Follow-Up Follow up with: PCP within 2 weeks of discharge, needs radiation oncologist referral Follow Up With: Labs drawn during this admission KARLENE CAMARILLO MD Dec 04, 2021 11:01
--- NOTE | 2021-12-04 12:53 | NUR ---
SS following for discharge planning. SS reviewed pt chart and discussed with pt RN. Pt is from home and is currently on room air. Discharge order on the chart for home with self care.
--- NOTE | 2021-12-04 13:41 | NUR ---
Pt left unit at 1340 by ambulation via private vehicle. Pt's IV removed without complication, VSS. Discharge instructions including medications, follow-up, and teaching discussed with pt. Pt verbalizes understanding.
--- NOTE | 2021-12-05 13:16 | PDOC3 ---
[facility]-Discharge Summary Date of Admission: Date of Admission: Dec 03, 2021 Date of Discharge: Date of Discharge: Dec 04, 2021 Discharge Diagnosis: Discharge Diagnosis: Angioedema. Hospital Course: Hospital Course: 36-year-old female who has a history of recurrent angioedema. She is not sure what is causing it. She is on multiple medications. Once again, she presents with swollen lips. It appears she has recurrent angioedema. We are going to admit the patient and give her steroids, Benadryl, and Pepcid. By day of discharge patient's facial swelling has improved. I have sent off for C3-C4 levels. Levels have not returned. I have discussed with the patient to follow-up closely with her results. I have also recommended for patient to follow-up closely with PCP for referral to an piercing specialist. She will be discharged with prednisone taper and EpiPen. Rest of hospital course was uneventful. Disposition: Disposition/Orders: D/C to Home Activity: Activity: Resume previous activity Diet: Diet: Regular Medications: Home Meds Active Scripts Diphenhydramine Hcl (BENADRYL ALLERGY) 25 Mg Tablet, 1 TAB PO Q12HR PRN for facial swelling for 14 Days, #28 TAB 0 Refills Prov:KARLENE CAMARILLO MD 12/04/21 Prednisone (PREDNISONE) 20 Mg Tablet, 40 MG PO DAILY for angiodema for 5 Days, #10 TAB Prov:KARLENE CAMARILLO MD 12/04/21 Oxycodone/Apap 5-325 (PERCOCET 5-325 MG TABLET ) 1 Each Tablet, 1 TAB PO PRN Q6HRS PRN for PAIN for 3 Days, #12 TAB Prov:KARLENE CAMARILLO MD 12/04/21 Sumatriptan Succinate (IMITREX) 50 Mg Tablet, 1 TAB PO UD, #9 TAB 1 Refill Prov:VIOLETTA ABDI APRN 05/09/18 Tramadol Hcl (ULTRAM) 50 Mg Tablet, 1 TAB PO Q6HRS, #30 TAB Prov:VIOLETTA ABDI APRN 06/03/17 Cyclobenzaprine Hcl (CYCLOBENZAPRINE HCL) 10 Mg Tablet, 1 TAB PO TID, #30 TAB Prov:VIOLETTA ABDI APRN 11/26/16 Albuterol Sulfate (PROAIR HFA INHALER) 8.5 Gm Hfa.aer.ad, 2 PUFF INH PRN Q6HRS PRN for SHORTNESS OF BREATH, #1 INHALER 0 Refills Prov:ECHO WILLIAM 05/29/16 Discontinued Scripts Oxycodone/Apap 5-325 (PERCOCET 5-325 MG TABLET ) 1 Each Tablet, 1 TAB PO PRN Q6HRS PRN for PAIN, #30 TAB 0 Refills Prov:CASIMIRO CASAS Jr., MD 08/15/21 Scheduled Cyclobenzaprine Hcl (Cyclobenzaprine Hcl), 1 TAB PO TID Prednisone (Prednisone), 40 MG PO DAILY Sumatriptan Succinate (Imitrex), 1 TAB PO UD Tramadol Hcl (Ultram), 1 TAB PO Q6HRS Scheduled PRN Albuterol Sulfate (Proair Hfa Inhaler), 2 PUFF INH PRN Q6HRS PRN for SHORTNESS OF BREATH Diphenhydramine Hcl (Benadryl Allergy), 1 TAB PO Q12HR PRN for facial swelling Oxycodone/Apap 5-325 (Percocet 5-325 Mg Tablet ), 1 TAB PO PRN Q6HRS PRN for PAIN Discontinued Medications Oxycodone/Apap 5-325 (Percocet 5-325 Mg Tablet ), 1 TAB PO PRN Q6HRS PRN for PAIN Total Time: Total Time: Total time spent was 32 minutes in preparing scripts, discharge planning with SWI and RN and preparing this discharge summary Patient seen and examined on day of discharge. No acute abnormal findings. Justicifation of Admission Dx: Justifications for Admission: Justification of Admission Dx: N/A KARLENE CAMARILLO MD Dec 05, 2021 13:16
[2021-12-05 14:13] LABS: C4 COMPLEMENT 24 mg/dL (12-38)
== END 2021-12-04 13:45 | disposition home or self-care (01) | DRG 916 ==
LOC: ER 10:53 → 5 NORTH 12:15 → OBSVTOIN 12-04 10:15
PROVIDERS: ADMIT Internal Medicine; ATTEND Internal Medicine
DX: T78.3XXA Angioneurotic edema, initial encounter (principal); Z68.1 Body mass index [BMI] 19.9 or less, adult; G89.29 Other chronic pain; M19.90 Unspecified osteoarthritis, unspecified site; G43.909 Migraine, unspecified, not intractable, without status migrainosus; J45.909 Unspecified asthma, uncomplicated; X58.XXXA Exposure to other specified factors, initial encounter; Z82.49 Family history of ischemic heart disease and other diseases of the circulatory system; Z85.43 Personal history of malignant neoplasm of ovary; Z98.891 History of uterine scar from previous surgery; Y93.89 Activity, other specified; Y92.89 Other specified places as the place of occurrence of the external cause; Y99.8 Other external cause status; R00.0 Tachycardia, unspecified
CPT/HCPCS: 36415; 80048; 85025; 86160; 86162; 96361; 96374; 96375; G0378; G0379; J1200; J2405; J2920; J2930; J3490; J7030; 99285-25